=== PATIENT | male | born 1945 | race Hispanic/Latino ===

== ENCOUNTER 2020-11-16 14:48 | Inpatient (IN) | payer MEDICARE ==
--- NOTE | 2020-11-16 15:20 | Cat Scan Report ---
CT BRAIN: 11/16/2020 INDICATION / CLINICAL INFORMATION: Stroke symptoms. COMPARISON: None available. FINDINGS: BRAIN/INTRACRANIAL STRUCTURES: Unenhanced CT images of the brain demonstrate no evidence of acute abn ormality. Ventricles and sulci are prominent in size, consistent with prominent diffuse cerebral atrophy. There is evidence of chronic cortical ischemic injury in the high right parietal lobe as well as in t he right frontal periventricular white matter. There is no evidence of hemorrhage or mass. There are no abnormal extra-axial fluid collections. Atherosclerotic vascular calcifications are present in the distal internal carotid arteries and verte bral arteries. EXTRACRANIAL STRUCTURES: Unremarkable. IMPRESSION: No CT evidence of acute abnormality. Chronic right parietal cortical ischemic change. Prominent diffuse cerebral atrophy. Notification Dr. Xavier in the emergency department at [address] scans at this location are performed using dose reduction to ALARA by means of automated expos ure control. Signer Name: Chris Carl MD Signed: 11/16/2020 3:15 PM Workstation Name: [id number]
--- NOTE | 2020-11-16 15:55 | Emergency Department Report ---
ED Neuro Deficit HPI - General Chief Complaint: Neuro Symptoms/Deficit Stated Complaint: POSSIBLE STROKE Time Seen by Provider: 11/16/20 14:50 Source: EMS Mode of arrival: Stretcher Limitations: Altered Mental Status - History of Present Illness Initial Comments: Chief complaint: Left arm weakness HPI: This is a 75-year-old male with history of CVA x3, hypertension, diabetes mellitus, dyslipidemia who presents with left arm weakness sudden onset. provided history to EMS. Last known well 2 hours prior to arrival. Patient denies any pain or discomfort. Patient takes Pradaxa. EMS noticed right arm weakness. noticed left arm weakness when he was unable to transfer or move from a chair. He was holding his arm in a weird position. Medications: Indapamide Pradaxa Atorvastatin Spironolactone Hydralazine Lisinopril Atenolol Warfarin discontinued -: Sudden, hour(s) (2 hours prior to arrival) Location: left arm History of same: Yes Place: home Severity: mild Quality: weak Improves With: none Worsens With: none On Anticoagulants: Yes (Pradaxa) Context: sudden onset Associated Symptoms: denies other symptoms Treatments Prior to Arrival: other (EMS transport) ED Review of Systems ROS: Stated complaint: POSSIBLE STROKE Other details as noted in HPI Comment: All other systems reviewed and negative Constitutional: denies: chills, fever Respiratory: denies: cough, shortness of breath Cardiovascular: denies: chest pain Gastrointestinal: denies: abdominal pain, nausea, vomiting Neurological: weakness ED Past Medical Hx - Past Medical History Previous Medical History?: Yes Hx Hypertension: Yes Hx CVA: Yes Hx Diabetes: Yes - Surgical History Past Surgical History?: No - Social History Smoking Status: Never Smoker Substance Use Type: None ED Neuro Physical Exam - General Limitations: No Limitations General appearance: alert, in no apparent distress Suspected Stroke: Yes - Head Head exam: Present: atraumatic, normocephalic - Eye Eye exam: Present: normal appearance - ENT ENT exam: Present: mucous membranes moist - Neck Neck exam: Present: normal inspection, full ROM - Respiratory Respiratory exam: Present: normal lung sounds bilaterally. Absent: respiratory distress, wheezes, rales, rhonchi - Cardiovascular Cardiovascular Exam: Present: regular rate, normal rhythm, normal heart sounds. Absent: systolic murmur, diastolic murmur, rubs, gallop - GI/Abdominal GI/Abdominal exam: Present: soft, normal bowel sounds. Absent: distended, tenderness, guarding, rebound - Rectal Rectal exam: Present: deferred - Extremities Exam Extremities exam: Present: other (Pitting edema bilateral, venous stasis changes hyperpigmentation) - Neurological Exam Neurological exam: Present: alert, other (Oriented to place and name) - NIHSS Assessment Interval: Baseline 1a. Level of Consciousness: alert/keenly responsive 1b. LOC Questions: answers 1 question correctly 1c. LOC Commands: performs tasks correctly 2. Best Gaze: normal 3. Visual: no visual loss 4. Facial Palsy: normal symmetrical movement 5b. Motor Arm Right: no drift 5a. Motor Arm Left: drift 6a. Motor Leg Left: no drift 6b. Motor Leg Right: no drift 7. Limb Ataxia: present 1 limb 8. Sensory: normal 9. Best Language: no aphasia 10. Dysarthria: mild/moderate dysarthria 11. Extinction/Inattention: no abnormality Total Score: 4 Stroke Severity: Minor Stroke - Psychiatric Psychiatric exam: Present: normal affect, normal mood - Skin Skin exam: Present: warm, dry, intact, normal color. Absent: rash ED Course - Reevaluation(s) Reevaluation #1: 11/16/20 16:22 I spoke with our hospitalist Dr. Bernstein for admission. I then discovered patient's medication bag. He is covered by [facility]. I spoke immediately with [facility] physician to determine hospital admission location. - Lab Data Result diagrams: 11/16/20 15:17 11/16/20 15:17 Lab Results 11/16/20 11/16/20 11/16/20 Range/Units 15:17 15:17 15:17 WBC 5.2 (4.5-11.0) K/mm3 RBC 4.49 (3.65-5.03) M/mm3 Hgb 13.8 (11.8-15.2) gm/dl Hct 41.0 (35.5-45.6) % MCV 91 (84-94) fl MCH 31 (28-32) pg MCHC 34 (32-34) % RDW 13.8 (13.2-15.2) % Plt Count 148 (140-440) K/mm3 Lymph % (Auto) 19.7 (13.4-35.0) % [place] % (Auto) 7.2 (0.0-7.3) % Eos % (Auto) 3.4 (0.0-4.3) % Baso % (Auto) 0.9 (0.0-1.8) % Lymph # (Auto) 1.0 L (1.2-5.4) K/mm3 [place] # (Auto) 0.4 (0.0-0.8) K/mm3 Eos # (Auto) 0.2 (0.0-0.4) K/mm3 Baso # (Auto) 0.0 (0.0-0.1) K/mm3 Seg Neutrophils % 68.8 (40.0-70.0) % Seg Neutrophils # 3.6 (1.8-7.7) K/mm3 PT 13.8 (12.2-14.9) Sec. INR 1.00 (0.87-1.13) APTT 29.1 (24.2-36.6) Sec. Thrombin Time 79.1 H (15.1-19.6) Sec. Sodium 135 L (137-145) mmol/L Potassium 4.3 (3.6-5.0) mmol/L Chloride 101.0 (98-107) mmol/L Carbon Dioxide 25 (22-30) mmol/L Anion Gap 13 mmol/L BUN 18 (9-20) mg/dL Creatinine 1.2 (0.8-1.3) mg/dL Estimated GFR 59 ml/min BUN/Creatinine Ratio 15 % Glucose 139 H (75-100) mg/dL Calcium 8.7 (8.4-10.2) mg/dL Troponin T < 0.010 (0.00-0.029) ng/mL - Radiology Data [facility] [address] [place] [address] Cat Scan Report Signed Patient: STEPHANIE PEREZ MR#: [id number] : 1945 Acct:[id number] Age/Sex: 75 / M ADM Date: 11/16/20 Loc: ED Attending Dr: Ordering Physician: Nelly Christy MD Date of Service: 11/16/20 Procedure(s): CT head/brain wo con Accession Number(s): [id number] cc: Nelly Christy MD CT BRAIN: 11/16/2020 INDICATION / CLINICAL INFORMATION: Stroke symptoms. COMPARISON: None available. FINDINGS: BRAIN/INTRACRANIAL STRUCTURES: Unenhanced CT images of the brain demonstrate no evidence of acute abnormality. Ventricles and sulci are prominent in size, consistent with prominent diffuse cerebral atrophy. There is evidence of chronic cortical ischemic injury in the high right pa rietal lobe as well as in the right frontal periventricular white matter. There is no evidence of hemorrhage or mass. There are no abnormal extra-axial fluid collections. Atherosclerotic vascular calcifications are present in the distal internal carotid arteries and vertebral arteries. EXTRACRANIAL STRUCTURES: Unremarkable. IMPRESSION: No CT evidence of acute abnormality. Chronic right parietal cortical ischemic change. Prominent diffuse cerebral atrophy. Notification Dr. Xavier in the emergency department at [address] scans at this location are performed using dose reduction to ALARA by means of automated exposure control. Signer Name: Chris Carl MD Signed: 11/16/2020 3:15 PM Workstation Name: [id number] Transcribed By: AO Dictated By: Chris Carl MD Electronically Authenticated By: Chris Carl MD Signed Date/Time: 11/16/201514 DD/ 10 TD/TT: [facility] [address] [place] [address] Cat Scan Report Signed Patient: STEPHANIE PEREZ MR#: [id number] : 1945 Acct:[id number] Age/Sex: 75 / M ADM Date: 11/16/20 Loc: ED Attending Dr: Ordering Physician: Nelly Christy MD Date of Service: 11/16/20 Procedure(s): CT angio neck Accession Number(s): [id number] cc: Nelly Christy MD CT angio neck INDICATION / CLINICAL INFORMATION: 75 years Male; stroke symptoms left sided weakness. TECHNIQUE: Thin cut axial images obtained through the head during IV bolus contrast administration. Sagittal, coronal, and 3 plane MIP reconstructions performed by the technologist. NASCET type criteria used evaluate stenoses. All CT scans at this location are performed using CT dose reduction for ALARA by means of automated exposure control. COMPARISON: None available. FINDINGS: CAROTID ARTERIES: The motion significantly degrades the image quality. However, there is minimal calcification involving proximal right ICA without significant stenosis by NASCET criteria. The right carotid bifurcation is widely patent. There is also no significant stenosis involving the left carotid bifurcation. However, there is atherosclerotic calcified plaque involving the distal cervical segment of the left ICA with 50% stenosis by NASCET criteria VERTEBRAL ARTERIES: There appears be small focus of calcification with mild narrowing of the origin of the left vertebral artery. Otherwise, the vertebral arteries are unremarkable without significant focal stenosis. ARCH: Unfortunately, the arch of vessels are not fully included on this exam. There is no significant stenosis of the visualized proximal segments at. ADDITIONAL FINDINGS: Remainder of the surrounding soft tissues are grossly normal. IMPRESSION: There is calcified plaque involving the distal cervical left ICA with 50% stenosis by NASCET criteria. There is no significant stenosis involving carotid bifurcations bilaterally. There is mild narrowing of the origin of the left vertebral artery. Signer Name: Jn Aguilera MD Signed: 11/16/2020 4:05 PM Workstation Name: [id number] Transcribed By: MR Dictated By: Jn Aguilera MD Electronically Authenticated By: Jn Aguilera MD Signed Date/Time: 11/16/20 1605 DD/ 1559 TD/TT: [facility] [address] [place] [address] Cat Scan Report Signed Patient: STEPHANIE PEREZ MR#: [id number] : 1945 Acct:[id number] Age/Sex: 75 / M ADM Date: 11/16/20 Loc: ED Attending Dr: Ordering Physician: Nelly Christy MD Date of Service: 11/16/20 Procedure(s): CT angio head Accession Number(s): [id number] cc: Nelly Christy MD CT angio head INDICATION / CLINICAL INFORMATION: 75 years Male; OMNI 350 100 ML stroke symptoms left sided weakness. TECHNIQUE: Thin cut axial images obtained through the head during IV bolus contrast administration. Sagittal, coronal, and 3 plane MIP reconstructions performed by the technologist. NASCET type criteria used evaluate stenoses. Automated exposure control utilized for radiation reduction purposes. COMPARISON: None available. FINDINGS: INTERNAL CAROTID ARTERIES: There is extensive atherosclerotic calcification involving the intracranial ICAs bilaterally with mild to moderate stenosis, particularly involving the cavernous, ophthalmic and clinoid segments. VERTEBROBASILAR SYSTEM: There is also calcification involving proximal intracranial left vertebral artery with mild narrowing at. There is irregularity of the basilar artery indicative of atherosclerotic disease with mild to narrowing, particularly involving the mid segmented. CEREBRAL ARTERIES: There is notable irregularity of the posterior cerebral arteries with foci of moderate to marked narrowing, particularly involving P1 segments. The findings may also reflect atherosclerotic disease. There appears be marked stenosis of the proximal A1 segment. There is some opacification of the more distal A1 segment which may be via collateral of flow. There is no significant narrowing involving more distal anterior cerebral segments at. There is no significant stenosis involving the proximal middle cerebral arteries or visualized adjacent segments. ANEURYSM: None identified. ADDITIONAL FINDINGS: The ventral venous sinuses opacify with contrast. IMPRESSION: There is atherosclerotic calcification involving the intracranial ICAs with mild to moderate segmental stenosis as detailed above. There is mild narrowing of the proximal left intracranial vertebral artery. There is notable irregularity of the posterior cerebral arteries, particularly involving P1 segments with moderate to marked narrowing. There is also marked stenosis involving proximal A1 segment of the right STEPHEN as described at. The above findings would be indicative of diffuse atherosclerotic disease. There is mild narrowing of the mid basilar artery at. Signer Name: Jn Aguilera MD Signed: 11/16/2020 4:12 PM Workstation Name: [id number] Transcribed By: MR Dictated By: Jn Aguilera MD Electronically Authenticated By: Jn Aguilera MD Signed Date/Time: 11/16/20 1612 DD/ 1605 TD/TT: Chest 1 view: Diminished lung volumes with a localized infiltrate, prominence of the right hilum - Medical Decision Making Acute CVA: TPA contraindicated with history of anticoagulation agent Pradaxa. NIHSS 3 per teleneurologist who did not recommend TPA. Teleneurologist recom mended pursing metabolic infectious cause of presentation. Critical Care Time: Yes Critical care time in (mins) excluding proc time.: 40 Critical care attestation.: If time is entered above; I have spent that time in minutes in the direct care of this critically ill patient, excluding procedure time. 40 minutes of critical care time excluding procedures were used in the care of the patient. I came immediately to the bedside upon patient's arrival. I obtained history from EMS at the bedside. I asked charge nurse to activate code stroke protocol. Nurse team accompany patient with video camera to CT. I discussed treatment plan with the nursing team members. I reviewed electronic record. I kept informed. Patient required multiple interventions and reassessments. I spoke with multiple consultants including radiologist, teleneurologist, hospitalist and transfer physician with [facility]. ED Disposition Clinical Impression: Acute CVA (cerebrovascular accident) Disposition: OP ADMIT IP TO THIS HOSP Is pt being admited?: Yes Does the pt Need Aspirin: No Condition: Stable
--- NOTE | 2020-11-16 15:55 | XRay Report ---
CHEST 1 VIEW 11/16/2020 2:39 PM INDICATION / CLINICAL INFORMATION: suspected stroke. COMPARISON: None available. FINDINGS: SUPPORT DEVICES: None. HEART / MEDIASTINUM: No significant abnormality. LUNGS / PLEURA: Lung volumes are diminished. Mild prominence right hilum. No pneumothorax. ADDITIONAL FINDINGS: No significant additional findings. IMPRESSION: 1. Diminished lung volumes without localized infiltrate. 2. Prominence of the right hilum. This is favored to be vascular in origin. Recommend follow-up PA an d lateral chest. Signer Name: Dinesh Em MD Signed: 11/16/2020 3:51 PM Workstation Name: [id number]
[2020-11-16 16:00] LABS: BUN/Creatinine Ratio 15; Basophils % (Auto) 0.9 % (0.0-1.8); Blood Urea Nitrogen 18 mg/dL (9-20); Calcium 8.7 mg/dL (8.4-10.2); Eosinophils # (Auto) 0.2 K/mm3 (0.0-0.4); Eosinophils % (Auto) 3.4 % (0.0-4.3); Hemoglobin 13.8 gm/dl (11.8-15.2); Hemolysis Index 12; Lymphocytes % (Auto) 19.7 % (13.4-35.0); Mean Corpuscular HGB Conc 34 % (32-34); Mean Corpuscular Volume 91 fl (84-94); Monocytes # (Auto) 0.4 K/mm3 (0.0-0.8); Monocytes % (Auto) 7.2 % (0.0-7.3); Platelet Count 148 K/mm3 (140-440); Red Blood Count 4.49 M/mm3 (3.65-5.03); Red Cell Distribution Width 13.8 % (13.2-15.2)
--- NOTE | 2020-11-16 16:09 | Cat Scan Report ---
CT angio neck INDICATION / CLINICAL INFORMATION: 75 years Male; stroke symptoms left sided weakness. TECHNIQUE: Thin cut axial images obtained through the head during IV bolus contrast administration. S agittal, coronal, and 3 plane MIP reconstructions performed by the technologist. NASCET type criteria used evaluate stenoses. All CT scans at this location are performed using CT dose reduction for ALAR A by means of automated exposure control. COMPARISON: None available. FINDINGS: CAROTID ARTERIES: The motion significantly degrades the image quality. However, there is minimal calc ification involving proximal right ICA without significant stenosis by NASCET criteria. The right car otid bifurcation is widely patent. There is also no significant stenosis involving the left carotid bifurcation. However, there is ather osclerotic calcified plaque involving the distal cervical segment of the left ICA with 50% stenosis b y NASCET criteria VERTEBRAL ARTERIES: There appears be small focus of calcification with mild narrowing of the origin o f the left vertebral artery. Otherwise, the vertebral arteries are unremarkable without significant f ocal stenosis. ARCH: Unfortunately, the arch of vessels are not fully included on this exam. There is no significant stenosis of the visualized proximal segments at. ADDITIONAL FINDINGS: Remainder of the surrounding soft tissues are grossly normal. IMPRESSION: There is calcified plaque involving the distal cervical left ICA with 50% stenosis by NASCET criteria . There is no significant stenosis involving carotid bifurcations bilaterally. There is mild narrowing of the origin of the left vertebral artery. Signer Name: Jn Aguilera MD Signed: 11/16/2020 4:05 PM Workstation Name: [id number]
--- NOTE | 2020-11-16 16:16 | Cat Scan Report ---
CT angio head INDICATION / CLINICAL INFORMATION: 75 years Male; OMNI 350 100 ML stroke symptoms left sided weakness. TECHNIQUE: Thin cut axial images obtained through the head during IV bolus contrast administration. S agittal, coronal, and 3 plane MIP reconstructions performed by the technologist. NASCET type criteria used evaluate stenoses. Automated exposure control utilized for radiation reduction purposes. COMPARISON: None available. FINDINGS: INTERNAL CAROTID ARTERIES: There is extensive atherosclerotic calcification involving the intracrania l ICAs bilaterally with mild to moderate stenosis, particularly involving the cavernous, ophthalmic a nd clinoid segments. VERTEBROBASILAR SYSTEM: There is also calcification involving proximal intracranial left vertebral ar alicia with mild narrowing at. There is irregularity of the basilar artery indicative of atheroscleroti c disease with mild to narrowing, particularly involving the mid segmented. CEREBRAL ARTERIES: There is notable irregularity of the posterior cerebral arteries with foci of mode rate to marked narrowing, particularly involving P1 segments. The findings may also reflect atheroscl erotic disease. There appears be marked stenosis of the proximal A1 segment. There is some opacification of the more distal A1 segment which may be via collateral of flow. There is no significant narrowing involving mo re distal anterior cerebral segments at. There is no significant stenosis involving the proximal middle cerebral arteries or visualized adjace nt segments. ANEURYSM: None identified. ADDITIONAL FINDINGS: The ventral venous sinuses opacify with contrast. IMPRESSION: There is atherosclerotic calcification involving the intracranial ICAs with mild to moderate segmenta l stenosis as detailed above. There is mild narrowing of the proximal left intracranial vertebral art filiberto. There is notable irregularity of the posterior cerebral arteries, particularly involving P1 segments with moderate to marked narrowing. There is also marked stenosis involving proximal A1 segment of the right STEPHEN as described at. The above findings would be indicative of diffuse atherosclerotic disease. There is mild narrowing of the mid basilar artery at. Signer Name: Jn Aguilera MD Signed: 11/16/2020 4:12 PM Workstation Name: [id number]
[2020-11-16 16:17] LABS: Partial Thromboplastin Time 29.1 Sec. (24.2-36.6)
[2020-11-16 16:18] LABS: Thrombin Time 79.1 Sec. (15.1-19.6)
[2020-11-16] MEDS ORDERED: ASPIRIN 81 MG TAB CHEW PO ONE (16:19)
--- NOTE | 2020-11-16 16:21 | History and Physical Report ---
History of Present Illness Chief complaint: He is weak on that left side History of present illness: 75 YO Male with HTN, DM, HLD, CVA x3 complicated by Dysarthria, and Debility currently on therapeutic anticoagulation with Pradaxa, Vascular Dementia with Behavioral Disturbance, Cerebral Atherosclerosis presents to ED for evaluation. Patient has diminished cognition and is unable to provide history at the time my evaluation. Patient is at bedside during exam and interview and provides history. Patient reports that patient has experienced progressive muscular weakness over the past 3 months with persistently worsening symptoms over the same timeframe. Patient is currently bedbound and nonambulatory. Patient currently requires 5/6 assistance with activities of daily living. Patient has a palliative performance score of 30%. Patient exhibits tangential thinking as well as confusion and agitation during evening hours. Patient reports that patient was found to have new onset left arm weakness today. EMS was notified and upon arrival the patient was found to be in distress with a neurologic deficit. A code stroke was called and the patient was transported to [facility] for further care and evaluation of the aforementioned symptoms. The patient was seen and evaluated in the emergency department. All lab and imaging studies reviewed. Patient found to have some clinical symptoms consistent with CVA. Patient placed in observation status and admitted to telemetry and initiated on CVA protocol. No reports of fever, chills, chest pain, palpitation, productive cough, skin rash, recent ill contacts, trauma, or known exposure to COVID-19. No prior admission for review. All medication listed at time of admission has been reconciled. Advanced care planning conducted in ED. Past History Past Medical History: diabetes, hypertension, hyperlipidemia, stroke, other (See HPI) Past Surgical History: No surgical history, Other (Reviewed) Social history: , lives with family. denies: smoking, alcohol abuse, prescription drug abuse Family history: CAD, hypertension Medications and Allergies Active Meds: Active Medications Aspirin (Aspirin 81 Mg Tab Chew) 324 mg PO ONCE ONE Stop: 11/16/20 16:20 Review of Systems ROS unobtainable: due to mental status Exam - Constitutional General appearance: Present: mild distress - EENT Eyes: Present: PERRL ENT: clear oral mucosa, hearing decreased - Neck Neck: Present: supple, normal ROM - Respiratory Respiratory effort: normal Respiratory: bilateral: CTA - Cardiovascular Heart Sounds: Present: S1 & S2. Absent: rub, click - Extremities Extremities: pulses symmetrical, No edema Peripheral Pulses: within normal limits - Abdominal General gastrointestinal: Present: soft, non-tender, non-distended, normal bowel sounds Male genitourinary: Present: normal - Integumentary Integumentary: Present: warm, dry, decreased turgor - Musculoskeletal Musculoskeletal: left sided weakness - Psychiatric Psychiatric: no appropriate mood/affect, no intact judgment & insight, no memory intact, agitated - Neurologic Neurologic: CNII-XII intact, focal deficits, moves all extremities, no gait normal HEART Score - HEART Score Troponin: Troponin T < 0.010 ng/mL (0.00-0.029) 11/16/20 15:17 Results - Labs CBC & Chem 7: 11/16/20 15:17 11/16/20 15:17 Labs: Abnormal lab results 11/16/20 11/16/20 11/16/20 Range/Units 15:17 15:17 15:17 Lymph # (Auto) 1.0 L (1.2-5.4) K/mm3 Thrombin Time 79.1 H (15.1-19.6) Sec. Sodium 135 L (137-145) mmol/L Glucose 139 H (75-100) mg/dL Assessment and Plan - Patient Problems (1) Acute CVA (cerebrovascular accident) Status: Acute Plan to address problem: CVA protocol: CT scan head, carotid Doppler, echocardiogram, continue antipla telet therapy, telemetry neurology team consulted in ED, physical therapy consulted, Occupational Therapy consulted, speech therapy consulted, (2) Vascular dementia with behavioral disturbance Status: Acute Plan to address problem: Verbal prompting, verbal redirection, benzodiazepine therapy as clinically indicated, supportive care. (3) Cerebral atherosclerosis Status: Acute Plan to address problem: Risk factor reduction, antiplatelet therapy, supportive care. (4) Debility Status: Acute Plan to address problem: Physical therapy consulted, Occupational Therapy consulted (5) Diabetes Status: Acute Plan to address problem: Consistent carbohydrate diet, hypoglycemia protocol, insulin protocol, (6) Hypertension Status: Acute Qualifiers: Hypertension type: primary hypertension Qualified Code(s): I10 - Essential (primary) hypertension Plan to address problem: Monitor blood pressure every shift, continue medical management, permissive hypertension overnight. (7) DVT prophylaxis Status: Acute Plan to address problem: SCD to bilateral lower extremities while in bed, continue therapeutic anticoagulation with Pradaxa (8) Advance care planning Status: Acute Plan to address problem: Disease education conducted, care plan discussed, diagnosis discussed, prognosis discussed. Patient at bedside during exam and interview and voices concerns regarding patient prognosis. Patient request home hospice evaluation. Home hospice team notified. Home evaluation arranged. Patient knowledges understanding and agreement with care plan, +30 minutes.
[2020-11-16] MEDS ORDERED: ALBUTEROL 2.5 MG/3 ML NEBU IH PRN (16:26)
[2020-11-16] MEDS ORDERED: HYDROmorphone 1 MG/1 ML INJ IV PRN (16:26)
[2020-11-16] MEDS ORDERED: METOCLOPRAMIDE 10 MG TAB PO PRN (16:26)
[2020-11-16] MEDS ORDERED: PROMETHAZINE 25 MG RECT SUPP PR PRN (16:26)
[2020-11-16] MEDS ORDERED: MAGNESIUM HYDROXIDE (MOM) ORAL LIQD UDC PO PRN (16:26)
[2020-11-16] MEDS ORDERED: ACETAMINOPHEN 325 MG TAB PO PRN (16:26)
[2020-11-16] MEDS ORDERED: oxyCODONE /ACETAMINOPHEN 5-325MG TAB PO PRN (16:26)
[2020-11-16] MEDS ORDERED: ONDANSETRON 4 MG/2 ML INJ IV PRN (16:26)
--- NOTE | 2020-11-16 17:28 | Consultation ---
Past History Past Medical History: diabetes, hypertension, hyperlipidemia, stroke, other (See HPI) Past Surgical History: No surgical history, Other (Reviewed) Social history: , lives with family. denies: smoking, alcohol abuse, prescription drug abuse Family history: CAD, hypertension Medications and Allergies Active Meds: Active Medications Acetaminophen (Acetaminophen 325 Mg Tab) 650 mg PO Q4H PRN PRN Reason: Pain, Mild (1-3) Albuterol (Albuterol 2.5 Mg/3 Ml Nebu) 2.5 mg IH Q3HRT PRN PRN Reason: Shortness Of Breath Aspirin (Aspirin 81 Mg Tab Chew) 324 mg PO ONCE ONE Stop: 11/16/20 16:20 Atorvastatin Calcium (Atorvastatin 40 Mg Tab) 40 mg PO QHS DOMI Bisacodyl (Bisacodyl 10 Mg Rect Supp) 10 mg DC QDAY PRN PRN Reason: Constipation Hydromorphone HCl (Hydromorphone 1 Mg/1 Ml Inj) 0.5 mg IV Q12H PRN PRN Reason: Pain , Severe (7-10) Magnesium Hydroxide (Magnesium Hydroxide (Mom) Oral Liqd Udc) 30 ml PO Q4H PRN PRN Reason: Constipation Metoclopramide HCl (Metoclopramide 10 Mg Tab) 10 mg PO Q6H PRN PRN Reason: Nausea And Vomiting Ondansetron HCl (Ondansetron 4 Mg/2 Ml Inj) 4 mg IV Q8H PRN PRN Reason: Nausea And Vomiting Oxycodone/Acetaminophen (Oxycodone /Acetaminophen 5-325mg Tab) 1 tab PO Q12H PRN PRN Reason: Pain, Moderate (4-6) Promethazine HCl (Promethazine 25 Mg Rect Supp) 25 mg DC Q6H PRN PRN Reason: Nausea And Vomiting Sodium Chloride (Sodium Chloride 0.9% 10 Ml Flush Syringe) 10 ml INJ PRN PRN PRN Reason: LINE FLUSH Results - Laboratory Findings CBC and BMP: 11/16/20 15:17 11/16/20 15:17 Abnormal Lab Findings: Abnormal Labs 11/16/20 11/16/20 11/16/20 15:17 15:17 15:17 Lymph # (Auto) 1.0 L Thrombin Time 79.1 H Sodium 135 L Glucose 139 H Assessment and Plan [facility] Consult Note # Demographics Consult Type: Acute Stroke Level 1 (0-4.5 hrs) Patient Location: Emergency Room First Name: Harvey Last Name: Ann Marie Date of : 1945 Age: 75 Gender: Male Time of Initial Page ( Time): 11/16/2020, 14:52 Time of Return Call ( Time): 11/16/2020, 14:55 # HPI History: 73 yo man with history of previous strokes and residual difficulty ambulating presents with sudden onset of left sided weakness and confusion at 1200 today. Last Known Normal: I have collected independent history specific to time last normal or last known well. We have collaborated with the provider and at this time, we have the most current timeline with the information that is available. 12:00 noon # Scores Time of exam and NIHSS ( Time): 11/16/2020, 15:16 Level of Consciousness 1a: [0] = Alert; keenly responsive LOC Questions 1b: [1] = Answers one correctly LOC Commands 1c: [0] = Performs both tasks correctly Best Gaze 2: [0] = Normal Visual 3: [0] = No visual loss Facial Palsy 4: [0] = Normal symmetrical movements Motor Arm Left 5a: [0] = No drift Motor Arm Right 5b: [0] = No drift Motor Leg Left 6a: [0] = No drift Motor Leg Right 6b: [0] = No drift Limb Ataxia 7: [1] = Present in one limb Sensory 8: [0] = Normal Best Language 9: [0] = No aphasia Dysarthria 10: [1] = [id number] dysarthria Extinction and Inattention 11: [0] = No abnormality NIHSS Total: 3 # Exam Vitals: vital signs reviewed SBP: 152 DBP: 110 # PMH-FH-SH Medications: Pradaxa # Data Head CT: no bleed per radiologist read CTA Head: no large vessel occlusion # Assessment Impression: Agitation and confusion, broad differential # Plan Thrombolytic/Intervention: NOT IV Thrombolytic or IA Intervention Thrombolytic Exclusion (< 3 hour window): actively on NOAC Intraarterial Exclusion: other Symptoms not suggestive of LVO Imaging: (urgency: routine): MRI Brain without contrast Medication: anticoagulation with NOAC Other: I have discussed my recommendations with the referring provider Additional Recommendations: Metabolic and infectious workup MRI brain to further rule out stroke Disposition: admit
[2020-11-17 03:44] LABS: Bilirubin,Urine NEG (Negative); Blood,Urine NEG (Negative); Color,Urine Yellow (Yellow); Protein,Urine <15 mg/dL mg/dL (Negative)
[2020-11-17 03:52] LABS: Amphetamine Screen,Urine PRESUMPTIVE NEGATIVE; Benzodiazepines Screen,Urine PRESUMPTIVE NEGATIVE; Cannabinoid Screen,Urine PRESUMPTIVE NEGATIVE; Cocaine Screen,Urine PRESUMPTIVE NEGATIVE; Methadone Screen,Urine PRESUMPTIVE NEGATIVE; Opiate Screen,Urine PRESUMPTIVE NEGATIVE
[2020-11-17 06:41] LABS: Chol/HDL Ratio 3.17 %
--- NOTE | 2020-11-17 10:37 | Vascular Lab Report ---
DUPLEX DOPPLER ULTRASOUND CAROTID, BILATERAL INDICATION / CLINICAL INFORMATION: stroke. COMPARISON: None available. FINDINGS: RIGHT CAROTID: - PLAQUE ESTIMATE (%): < 50% - CCA velocity: 84 cm/sec. - ICA peak systolic velocity: 57 cm/sec. - ICA/CCA PSV Ratio: Less than 2 Right Vertebral Artery: Antegrade flow. LEFT CAROTID: - PLAQUE ESTIMATE (%): < 50% - CCA velocity: 97 cm/sec. - ICA peak systolic velocity: 87 cm/sec. - ICA/CCA PSV Ratio: Less than 2 Left Vertebral Artery: Antegrade flow. IMPRESSION: 1. Right Internal Carotid Artery: Less than 50% diameter stenosis. 2. Left Internal Carotid Artery: Less than 50% diameter stenosis. Velocity criteria are extrapolated from diameter data as defined by the Society of Radiologists in Ul trasound Consensus Conference, Radiology 2003; 229;340-346. NO STENOSIS (NORMAL) - Plaque = none; ICA PSV < 125 cm/sec; ICA/CCA PSV Ratio < 2.0 <50% STENOSIS - Plaque < 50%; ICA PSV < 125 cm/sec; ICA/CCA PSV Ratio < 2.0 50-69% STENOSIS - Plaque > 50%; ICA PSV = 125-230 cm/sec; ICA/CCA PSV Ratio = 2.0-4.0 >70% BUT <100% STENOSIS - Plaque > 50%; ICA PSV > 230 cm/sec; ICA/CCA PSV Ratio > 4.0 NEAR OCCLUSION - Plaque = visible lumen; ICA PSV = high/low/none; ICA/CCA PSV Ratio = variable TOTAL OCCLUSION - Plaque = no lumen; ICA PSV = none; ICA/CCA PSV Ratio = N/A Signer Name: Michael Willams MD Signed: 11/17/2020 10:33 AM Workstation Name: [id number]
--- NOTE | 2020-11-18 17:12 | Progress Note ---
Assessment and Plan Assessment and Plan - Patient Problems (1) Acute CVA (cerebrovascular accident) Status: Acute Plan to address problem: CVA protocol: CT scan head, carotid Doppler, echocardiogram, continue antiplatelet therapy, telemetry neurology team consulted in ED, physical therapy consulted, Occupational Therapy consulted, speech therapy consulted, MRI pending L Hemiplegia (2) Vascular dementia with behavioral disturbance Status: Acute Plan to address problem: Verbal prompting, verbal redirection, benzodiazepine therapy as clinically indicated, supportive care. (3) Cerebral atherosclerosis Status: Acute Plan to address problem: Risk factor reduction, antiplatelet therapy, supportive care. (4) Debility Status: Acute Plan to address problem: Physical therapy consulted, Occupational Therapy consulted (5) Diabetes Status: Acute Plan to address problem: Consistent carbohydrate diet, hypoglycemia protocol, insulin protocol, (6) Hypertension Status: Acute Qualifiers: Hypertension type: primary hypertension Qualified Code(s): I10 - Essential (primary) hypertension Plan to address problem: Monitor blood pressure every shift, continue medical management, permissive hypertension overnight. (7) DVT prophylaxis Status: Acute Plan to address problem: SCD to bilateral lower extremities while in bed, continue therapeutic anticoagulation with Pradaxa (8) Advance care planning Status: Acute Plan to address problem: Disease education conducted, care plan discussed, diagnosis discussed, prognosis discussed. Patient at bedside during exam and interview and voices concerns regarding patient prognosis. Patient request home hospice evaluation. Home hospice team notified. Home evaluation arranged. Patient knowledges understanding and agreement with care plan, +30 minutes. Subjective Date of service: 11/17/20 Principal diagnosis: Acute CVA Interval history: 75 YO Male with HTN, DM, HLD, CVA x3 complicated by Dysarthria, and Debility currently on therapeutic anticoagulation with Pradaxa, Vascular Dementia with Behavioral Disturbance, Cerebral Atherosclerosis presents to ED for evaluation. Patient has diminished cognition and is unable to provide history at the time my evaluation. Patient is at bedside during exam and interview and provides history. Patient reports that patient has experienced progressive muscular weakness over the past 3 months with persistently worsening symptoms over the same timeframe. Patient is currently bedbound and nonambulatory. Patient currently requires 5/6 assistance with activities of daily living. Patient has a palliative performance score of 30%. Patient exhibits tangential thinking as well as confusion and agitation during evening hours. Patient reports that patient was found to have new onset left arm weakness today. EMS was notified and upon arrival the patient was found to be in distress with a neurologic deficit. A code stroke was called and the patient was transported to [facility] for further care and evaluation of the aforementioned symptoms. The patient was seen and evaluated in the emergency department. All lab and imaging studies reviewed. Patient found to have some clinical symptoms consistent with CVA. Patient placed in observation status and admitted to telemetry and initiated on CVA protocol. No reports of fever, chills, chest pain, palpitation, productive cough, skin rash, recent ill contacts, trauma, or known exposure to COVID-19. No prior admission for review. All medication listed at time of admission has been reconciled. Advanced care planning conducted in ED. 11/17/20 L sided hemiplegia D/w Objective - Constitutional Vitals: Vital Signs - 12hr 11/18/20 11/18/20 11/18/20 06:00 07:36 12:27 Temperature 98.1 F 98.0 F Pulse Rate 60 63 74 Respiratory 20 20 Rate Blood Pressure 171/82 169/95 O2 Sat by Pulse 94 96 Oximetry General appearance: Present: no acute distress, well-nourished - EENT Eyes: PERRL, EOM intact ENT: hearing intact, clear oral mucosa Ears: bilateral: normal - Neck Neck: supple, normal ROM - Respiratory Respiratory effort: normal Respiratory: bilateral: CTA - Breasts Breasts: normal - Cardiovascular Heart rate: 78 Rhythm: regular Heart Sounds: Present: S1 & S2. Absent: gallop, rub Extremities: pulses intact, No edema, normal color, Full ROM - Gastrointestinal General gastrointestinal: Present: soft, non-tender, non-distended, normal bowel sounds - Genitourinary Male genitourinary: normal - Integumentary Integumentary: clear, warm, dry - Musculoskeletal Musculoskeletal: left sided weakness - Neurologic Neurologic: moves all extremities - Psychiatric Psychiatric: memory intact, appropriate mood/affect, intact judgment & insight - Allied health notes Allied health notes reviewed: nursing - Labs CBC & Chem 7: 11/16/20 15:17 11/16/20 15:17 HEART Score - HEART Score Troponin: Troponin T < 0.010 ng/mL (0.00-0.029) 11/16/20 15:17
--- NOTE | 2020-11-18 17:31 | Progress Note ---
Assessment and Plan Assessment and Plan - Patient Problems (1) Acute CVA (cerebrovascular accident) Status: Acute Plan to address problem: CVA protocol: CT scan head, carotid Doppler, echocardiogram, continue antiplatelet therapy, telemetry neurology team consulted in ED, physical therapy consulted, Occupational Therapy consulted, speech therapy consulted, MRI pending L Hemiplegia (2) Vascular dementia with behavioral disturbance Status: Acute Plan to address problem: Verbal prompting, verbal redirection, benzodiazepine therapy as clinically indicated, supportive care. (3) Cerebral atherosclerosis Status: Acute Plan to address problem: Risk factor reduction, antiplatelet therapy, supportive care. (4) Debility Status: Acute Plan to address problem: Physical therapy consulted, Occupational Therapy consulted (5) Diabetes Status: Acute Plan to address problem: Consistent carbohydrate diet, hypoglycemia protocol, insulin protocol, (6) Hypertension Status: Acute Qualifiers: Hypertension type: primary hypertension Qualified Code(s): I10 - Essential (primary) hypertension Plan to address problem: Monitor blood pressure every shift, continue medical management, permissive hypertension overnight. (7) DVT prophylaxis Status: Acute Plan to address problem: SCD to bilateral lower extremities while in bed, continue therapeutic anticoagulation with Pradaxa (8) Advance care planning Status: Acute Plan to address problem: Disease education conducted, care plan discussed, diagnosis discussed, prognosis discussed. Patient at bedside during exam and interview and voices concerns regarding patient prognosis. Patient request home hospice evaluation. Home hospice team notified. Home evaluation arranged. Patient knowledges understanding and agreement with care plan, +30 minutes. Subjective Date of service: 11/18/20 Principal diagnosis: Acute CVA Interval history: 75 YO Male with HTN, DM, HLD, CVA x3 complicated by Dysarthria, and Debility currently on therapeutic anticoagulation with Pradaxa, Vascular Dementia with Behavioral Disturbance, Cerebral Atherosclerosis presents to ED for evaluation. Patient has diminished cognition and is unable to provide history at the time my evaluation. Patient is at bedside during exam and interview and provides history. Patient reports that patient has experienced progressive muscular weakness over the past 3 months with persistently worsening symptoms over the same timeframe. Patient is currently bedbound and nonambulatory. Patient currently requires 5/6 assistance with activities of daily living. Patient has a palliative performance score of 30%. Patient exhibits tangential thinking as well as confusion and agitation during evening hours. Patient reports that patient was found to have new onset left arm weakness today. EMS was notified and upon arrival the patient was found to be in distress with a neurologic deficit. A code stroke was called and the patient was transported to [facility] for further care and evaluation of the aforementioned symptoms. The patient was seen and evaluated in the emergency department. All lab and imaging studies reviewed. Patient found to have some clinical symptoms consistent with CVA. Patient placed in observation status and admitted to telemetry and initiated on CVA protocol. No reports of fever, chills, chest pain, palpitation, productive cough, skin rash, recent ill contacts, trauma, or known exposure to COVID-19. No prior admission for review. All medication listed at time of admission has been reconciled. Advanced care planning conducted in ED. 11/17/20 L sided hemiplegia D/w 11/18/20 L side hemiplegia D/w daughter Objective - Constitutional Vitals: Vital Signs - 12hr 11/18/20 11/18/20 11/18/20 06:00 07:36 12:27 Temperature 98.1 F 98.0 F Pulse Rate 60 63 74 Respiratory 20 20 Rate Blood Pressure 171/82 169/95 O2 Sat by Pulse 94 96 Oximetry General appearance: Present: no acute distress, well-nourished - EENT Eyes: PERRL, EOM intact ENT: hearing intact, clear oral mucosa Ears: bilateral: normal - Neck Neck: supple, normal ROM - Respiratory Respiratory effort: normal Respiratory: bilateral: CTA - Breasts Breasts: normal - Cardiovascular Heart rate: 78 Rhythm: regular Heart Sounds: Present: S1 & S2. Absent: gallop, rub Extremities: pulses intact, No edema, normal color, Full ROM - Gastrointestinal General gastrointestinal: Present: soft, non-tender, non-distended, normal bowel sounds - Genitourinary Male genitourinary: normal - Integumentary Integumentary: clear, warm, dry - Musculoskeletal Musculoskeletal: left sided weakness (0/5 power) - Neurologic Neurologic: focal deficits (L Hemiplegia), moves all extremities - Psychiatric Psychiatric: appropriate mood/affect, intact judgment & insight, memory intact, depressed - Allied health notes Allied health notes reviewed: nursing, PT, social work, case management - Labs CBC & Chem 7: 11/16/20 15:17 11/16/20 15:17 HEART Score - HEART Score Troponin: Troponin T < 0.010 ng/mL (0.00-0.029) 11/16/20 15:17
--- NOTE | 2020-11-19 13:50 | Progress Note ---
Assessment and Plan Assessment and Plan - Patient Problems (1) Acute CVA (cerebrovascular accident) Status: Acute Plan to address problem: CVA protocol: CT scan head, carotid Doppler, echocardiogram, continue antiplatelet therapy, telemetry neurology team consulted in ED, physical therapy consulted, Occupational Therapy consulted, speech therapy consulted, MRI pending L Hemiplegia Needs acute rehab/subacute rehab (2) Vascular dementia with behavioral disturbance Status: Acute Plan to address problem: Verbal prompting, verbal redirection, benzodiazepine therapy as clinically ind icated, supportive care. Lethargic (3) Cerebral atherosclerosis Status: Acute Plan to address problem: Risk factor reduction, antiplatelet therapy, supportive care. (4) Debility Status: Acute Plan to address problem: Physical therapy consulted, Occupational Therapy consulted (5) Diabetes Status: Acute Plan to address problem: Medications adjusted (6) Hypertension Status: Acute Qualifiers: Hypertension type: primary hypertension Qualified Code(s): I10 - Essential (primary) hypertension Plan to address problem: Medications adjusted (7) DVT prophylaxis Status: Acute Plan to address problem: SCD to bilateral lower extremities while in bed, continue therapeutic anticoagulation with Pradaxa (8) Advance care planning Status: Acute Plan to address problem: Disease education conducted, care plan discussed, diagnosis discussed, prognosis discussed. Patient at bedside during exam and interview and voices concerns regarding patient prognosis. Patient request home hospice evaluation. Home hospice team notified. Home evaluation arranged. Patient knowledges understanding and agreement with care plan, +30 minutes. Subjective Date of service: 11/19/20 Principal diagnosis: Acute CVA Interval history: 75 YO Male with HTN, DM, HLD, CVA x3 complicated by Dysarthria, and Debility currently on therapeutic anticoagulation with Pradaxa, Vascular Dementia with Behavioral Disturbance, Cerebral Atherosclerosis presents to ED for evaluation. Patient has diminished cognition and is unable to provide history at the time my evaluation. Patient is at bedside during exam and interview and provides history. Patient reports that patient has experienced progressive muscular weakness over the past 3 months with persistently worsening symptoms over the same timeframe. Patient is currently bedbound and nonambulatory. Patient currently requires 5/6 assistance with activities of daily living. Patient has a palliative performance score of 30%. Patient exhibits tangential thinking as well as confusion and agitation during evening hours. Patient reports that patient was found to have new onset left arm weakness today. EMS was notified and upon arrival the patient was found to be in distress with a neurologic deficit. A code stroke was called and the patient was transported to [facility] for further care and evaluation of the aforementioned symptoms. The patient was seen and evaluated in the emergency department. All lab and imaging studies reviewed. Patient found to have some clinical symptoms consistent with CVA. Patient placed in observation status and admitted to telemetry and initiated on CVA protocol. No reports of fever, chills, chest pain, palpitation, productive cough, skin rash, recent ill contacts, trauma, or known exposure to COVID-19. No prior admission for review. All medication listed at time of admission has been reconciled. Advanced care planning conducted in ED. 11/17/20 L sided hemiplegia D/w 11/18/20 L side hemiplegia D/w daughter 11/19/2020 Left-sided hemiplegia MRI ordered as urgent because it was not done on the weekend Neurology consult requested today Objective - Constitutional Vitals: Vital Signs - 12hr 11/19/20 11/19/20 11/19/20 03:53 06:00 07:24 Temperature 97.9 F 97.9 F Pulse Rate 72 75 77 Respiratory 16 20 Rate Blood Pressure 177/88 167/100 O2 Sat by Pulse 91 95 Oximetry 11/19/20 11:41 Temperature 97.8 F Pulse Rate 76 Respiratory 20 Rate Blood Pressure 158/92 O2 Sat by Pulse 94 Oximetry General appearance: Present: no acute distress, well-nourished - EENT Eyes: PERRL, EOM intact ENT: hearing intact, clear oral mucosa Ears: bilateral: normal - Neck Neck: supple, normal ROM - Respiratory Respiratory effort: normal Respiratory: bilateral: CTA - Breasts Breasts: normal - Cardiovascular Heart rate: 78 Rhythm: regular Heart Sounds: Present: S1 & S2. Absent: gallop, rub Extremities: pulses intact, No edema, normal color, Full ROM - Gastrointestinal General gastrointestinal: Present: soft, non-tender, non-distended, normal bowel sounds - Genitourinary Male genitourinary: normal - Integumentary Integumentary: clear, warm, dry - Musculoskeletal Musculoskeletal: strength equal bilaterally, left sided weakness (0/5 power) - Neurologic Neurologic: focal deficits (Left-sided hemiplegia), moves all extremities - Psychiatric Psychiatric: appropriate mood/affect, depressed - Allied health notes Allied health notes reviewed: nursing, PT, social work, case management - Labs CBC & Chem 7: 11/16/20 15:17 11/16/20 15:17 HEART Score - HEART Score Troponin: Troponin T < 0.010 ng/mL (0.00-0.029) 11/16/20 15:17
--- NOTE | 2020-11-19 13:52 | Consultation ---
History of Present Illness Consult date: 11/19/20 Reason for Consult: CVA,and dementia History of present illness: He is weak on that left side History of present illness: 75 YO Male with HTN, DM, HLD, CVA x3 complicated by slurred speech , and Debility currently on therapeutic anticoagulation with Pradaxa? rx by PCP , Vascular Dementia with Behavioral Disturbance, Cerebral Atherosclerosis presents to ED for evaluation. Patient has diminished cognition and is unable to provide history at the time my evaluation. Patient is at bedside during exam and interview and provides history. According to was able to walk using walker until last thursday she noted new onset left side weakness and she brought him to Er for assesment he is with hx of underlying dementia as well as diffisulty bladder control for last 5 years . pt. at time get confusion and agitation during evening hours. Patient reports that patient was found to have new onset left arm weakness today. EMS was notified and upon arrival the patient was found to be in distress with a neurologic deficit. A code stroke was called and the patient was transported to [facility] for further care and evaluation of the aforementioned symptoms. The patient was seen and evaluated in the emergency department. All lab and imaging studies reviewed. Patient found to have some clinical symptoms consistent with CVA. Patient placed in observation status and admitted to telemetry and initiated on CVA protocol. No reports of fever, chills, chest pain, palpitation, productive cough, skin rash, recent ill contacts, trauma, or known exposure to COVID-19. No prior admission for review. All medication listed at time of admission has been reconciled. Advanced care planning conducted in ED. Past History Past Medical History: diabetes, hypertension, hyperlipidemia, stroke, other (See HPI) Past Surgical History: No surgical history, Other (Reviewed) Social history: , lives with family. denies: smoking, alcohol abuse, prescription drug abuse Family history: CAD, hypertension Medications and Allergies Active Meds: Active Medications Aspirin (Aspirin 81 Mg Tab Chew) 324 mg PO ONCE ONE Stop: 11/16/20 16:20 Review of Systems ROS unobtainable: due to mental status Past History Past Medical History: diabetes, hypertension, hyperlipidemia, stroke, other (See HPI) Past Surgical History: No surgical history, Other (Reviewed) Social history: , lives with family. denies: smoking, alcohol abuse, prescription drug abuse Family history: CAD, hypertension Medications and Allergies Allergies Allergy/AdvReac Type Severity Reaction Status Date / Time hydrochlorothiazide Allergy Unknown Verified 11/16/20 18:45 Sulfa (Sulfonamide Allergy Hives Verified 11/16/20 18:45 Antibiotics) amlodipine AdvReac Swelling Verified 11/16/20 18:45 Home Medications Medication Instructions Recorded Confirmed Last Taken Type Adult Multivitamin Extra D3 1,000 mg PO DAILY 11/18/20 11/18/20 Unknown History AtorvaSTATin [Lipitor] 20 mg PO HS 11/18/20 11/18/20 Unknown History Dabigatran [Pradaxa] 150 mg PO BID 11/18/20 11/18/20 Unknown History Mecobalamin [B12 Active] 1,000 mg PO DAILY 11/18/20 11/18/20 Unknown History Spironolactone 25 mg PO DAILY 11/18/20 11/18/20 Unknown History atenoloL [Tenormin] 25 mg PO DAILY 11/18/20 11/18/20 Unknown History hydrALAZINE 25 mg PO BID 11/18/20 11/18/20 Unknown History lisinopriL [Lisinopril] See Protocol PO DAILY 11/18/20 11/18/20 Unknown History Active Meds: Active Medications Acetaminophen (Acetaminophen 325 Mg Tab) 650 mg PO Q4H PRN PRN Reason: Pain, Mild (1-3) Albuterol (Albuterol 2.5 Mg/3 Ml Nebu) 2.5 mg IH Q3HRT PRN PRN Reason: Shortness Of Breath Atorvastatin Calcium (Atorvastatin 40 Mg Tab) 40 mg PO QHS DOMI Last Admin: 11/18/20 21:38 Dose: 40 mg Documented by: Bisacodyl (Bisacodyl 10 Mg Rect Supp) 10 mg [place] QDAY PRN PRN Reason: Constipation Hydromorphone HCl (Hydromorphone 1 Mg/1 Ml Inj) 0.5 mg IV Q12H PRN PRN Reason: Pain , Severe (7-10) Magnesium Hydroxide (Magnesium Hydroxide (Mom) Oral Liqd Udc) 30 ml PO Q4H PRN PRN Reason: Constipation Metoclopramide HCl (Metoclopramide 10 Mg Tab) 10 mg PO Q6H PRN PRN Reason: Nausea And Vomiting Ondansetron HCl (Ondansetron 4 Mg/2 Ml Inj) 4 mg IV Q8H PRN PRN Reason: Nausea And Vomiting Oxycodone/Acetaminophen (Oxycodone /Acetaminophen 5-325mg Tab) 1 tab PO Q12H PRN PRN Reason: Pain, Moderate (4-6) Promethazine HCl (Promethazine 25 Mg Rect Supp) 25 mg [place] Q6H PRN PRN Reason: Nausea And Vomiting Sodium Chloride (Sodium Chloride 0.9% 10 Ml Flush Syringe) 10 ml IV PRN PRN PRN Reason: LINE FLUSH Physical Examination - Vital Signs Vital Signs: Vital Signs Temp Pulse Resp BP Pulse Ox 98.3 F 62 14 150/92 98 11/16/20 15:14 11/16/20 15:14 11/16/20 15:14 11/16/20 15:14 11/16/20 15:14 - Constitutional General appearance: comfortable, other (alert with significant subciortical dementia , he is with slurred speech and delayed response to questioning as well as disorientation to place and date , but he recognize his , he is with left side neglect , sitting in bed eating ) - EENT EENT: Present: PERRL, mucous membranes moist - Respiratory Respiratory: Present: chest non-tender, lungs clear, rhonchi - Cardiovascular Cardiovascular: Present: regular rate, normal S1, normal S2 Extremities: Present: no peripheral edema bilatateraly, pitting edema - Gastrointestinal Gastrointestinal: Present: normoactive bowel sounds - Integumentary Integumentary: Present: normal - Neurologic Cranial nerve examination: other (alert slurred speech , left visual neglect ) Sensorimotor examination: other (diffuse rigidity with sigificant left side weakness planter is down ,bilateral , and unable to ambulate.) Results - Laboratory Findings CBC and BMP: 11/16/20 15:17 11/16/20 15:17 Abnormal Lab Findings: Abnormal Labs 11/16/20 11/16/20 11/16/20 15:17 15:17 15:17 Lymph # (Auto) 1.0 L Thrombin Time 79.1 H Sodium 135 L Glucose 139 H POC Glucose HDL Cholesterol Ur Specific [place] 11/16/20 11/17/20 11/17/20 Unknown 05:04 11:14 Lymph # (Auto) Thrombin Time Sodium Glucose POC Glucose 163 H HDL Cholesterol 29 L Ur Specific [place] 1.036 H 11/17/20 16:40 Lymph # (Auto) Thrombin Time Sodium Glucose POC Glucose 133 H HDL Cholesterol Ur Specific [place] Assessment and Plan Assessment and Plan - Patient Problems # left side weakness with left visual neglect Ct brain is with right parietal infarct -timing of CVA is not clear according to she noted left side weakness by Thursday -he is with hx of previous CVA and use walker for ambulation , he is with bladder incontinence and significant dementia as per -pt, is on Pradexa at home ? - MRI brain is pending -CTA brain and neck is remarkable for diffuse atherosclerotic disease -echo --EF#60-65% with NSR -US carotid <50 % bilateral -ASA 325 mg daily -LDL#55 on lipitor 40 mg daily -A1C# is pending -ESR,MINISTERIO,B12,TSH , RPR are pending #Possible Vascular dementia with behavioral disturbance -possibility of NPH # Cerebral atherosclerosis -Risk factor reduction, antiplatet therapy, and lipitor , supportive care. # Debility -Physical therapy consulted, Occupational Therapy consulted # Diabetes -Consistent carbohydrate diet, hypoglycemia protocol, insulin protocol, -A1C is pending # Hypertension -Monitor blood pressure every shift, continue medical management, #DVT prophylaxis -SCD to bilateral lower extremities while in bed, continue therapeutic anticoagulation with Pradaxa # Advance care planning -Disease education conducted, care plan discussed, diagnosis discussed, prognosis discussed. Patient at bedside during exam and interview and voices concerns regarding patient prognosis. Patient request home hospice evaluation. Home hospice team notified. Home evaluation arranged. Patient knowledges understanding and agreement with care plan, +30 minutes. PLAN 1- brain MRI 2- B12,TSH,ESR,MINISTERIO,RPR,A1C 3- ASA 325 mg and lipitor 40 mg 4- cardiac monitoring 5-PT/ST evaluate 6- ? see no indication for Pradexa ? no hx of AF 7- Consider adding namenda 10 mg bid will follow
--- NOTE | 2020-11-19 17:51 | Electrocardiograph Report ---
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
[2020-11-20] MEDS: ASPIRIN EC 325 MG TAB PO SCH (10:09)
[2020-11-20] MEDS: MEMANTINE 5 MG TAB PO SCH ×2 (10:14→21:28)
--- NOTE | 2020-11-20 11:00 | Progress Note ---
Assessment and Plan Assessment and Plan - Patient Problems # left side weakness with left visual neglect Ct brain is with right parietal infarct -timing of CVA is not clear according to she noted left side weakness by Thursday -he is with hx of previous CVA and use walker for ambulation , he is with bladder incontinence and significant dementia as per -pt, is on Pradexa at home ? - MRI brain is suggestive of right parietal infarct consistent with the finding on CT brain -CTA brain and neck is remarkable for diffuse atherosclerotic disease -echo --EF#60-65% with NSR -US carotid <50 % bilateral -ASA 325 mg daily -LDL#55 on lipitor 40 mg daily -A1C# is #7.1 -ESR,MINISTERIO,B12,TSH , RPR are WNL #Possible Vascular dementia with behavioral disturbance -possibility of NPH not confirmed on radiological study # Cerebral atherosclerosis -Risk factor reduction, antiplatet therapy, and lipitor , supportive care. # Debility and underlying advanced dementia mostly multifactorial -Physical therapy consulted, Occupational Therapy consulted -start namenda 5 mg bid # Diabetes -Consistent carbohydrate diet, hypoglycemia protocol, insulin protocol, -A1C #7.1 -need A1C <7 # Hypertension -Monitor blood pressure every shift, continue medical management, -BP need <150/80 #DVT prophylaxis -SCD to bilateral lower extremities while in bed, continue therapeutic anticoagulation with Pradaxa # Advance care planning -Disease education conducted, care plan discussed, diagnosis discussed, prognosis discussed. Patient at bedside during exam and interview and voices concerns regarding patient prognosis. Patient request home hospice evaluation. Home hospice team notified. Home evaluation arranged. Patient knowledges understanding and agreement with care plan, +30 minutes. PLAN 1- ASA 325 mg and lipitor 40 mg 2- cardiac monitoring 3-PT/ST evaluate and rehabilitation 4- ? see no indication for Pradexa ? no hx of AF 5- Consider adding namenda 5 mg bid 6- better control BP and BS 7- Neurology follow up will sign off Subjective Date of service: 11/20/20 Principal diagnosis: Acute CVA Interval history: more alert with slight orientation he is with left side weakness , had MRI brain today Objective - Vital Sign Vital Signs - 12hr 11/20/20 11/20/20 05:00 08:02 Temperature 99.4 F 98.3 F Pulse Rate 78 Respiratory 16 20 Rate Blood Pressure 118/70 141/90 O2 Sat by Pulse 94 Oximetry - General Apperance Constitutional: comfortable - EENT EENT: PERRL, mucous membranes moist - Respiratory Respiratory: chest non-tender, lungs clear, rhonchi - Cardiovascular Cardiovascular: regular rate, normal S1, normal S2 Extremities: no peripheral edema bilat, no clubbing, cyanosis - Gastrointestinal Gastrointestinal: normoactive bowel sounds - Integumentary Integumentary: normal - Neurologic Cranial nerve examination: PERRL, EOMI, other (left visual negelect slight left facial droop ) Detailed motor examination: other (weakness left upper and to lesser extent l ower ext. gait not done ) - Laboratory Findings CBC and BMP: 11/16/20 15:17 11/16/20 15:17 Abnormal Lab Findings: Abnormal Labs 11/16/20 11/16/20 11/16/20 15:17 15:17 15:17 Lymph # (Auto) 1.0 L Thrombin Time 79.1 H Sodium 135 L Glucose 139 H POC Glucose Hemoglobin A1c HDL Cholesterol Ur Specific [place] 11/16/20 11/17/20 11/17/20 Unknown 05:04 11:14 Lymph # (Auto) Thrombin Time Sodium Glucose POC Glucose 163 H Hemoglobin A1c HDL Cholesterol 29 L Ur Specific [place] 1.036 H 11/17/20 11/19/20 16:40 15:56 Lymph # (Auto) Thrombin Time Sodium Glucose POC Glucose 133 H Hemoglobin A1c 7.1 H HDL Cholesterol Ur Specific [place]
--- NOTE | 2020-11-20 12:07 | Progress Note ---
Assessment and Plan Assessment and plan: --Acute CVA (cerebrovascular accident) right parietal infarct CVA protocol: CT scan head, carotid Doppler, echocardiogram, continue antiplatelet therapy, telemetry neurology team consulted in ED, physical therapy consulted, Occupational Therapy consulted, speech therapy consulted, MRI; right parietal infarct L Hemiplegia; PT OT supportive care Needs acute rehab/subacute rehab --Left-sided hemiparesis; Right parietal infarct, PT OT Acute rehab vs subacute rehab placement when stable --Vascular dementia with behavioral disturbance Verbal prompting, verbal redirection, benzodiazepine therapy As clinically indicated, supportive care. Lethargic --Cerebral atherosclerosis Risk factor reduction, antiplatelet therapy, supportive care. Right parietal infarct, with left hemiparesis, PT OT rehab --General debility Physical therapy consulted, Occupational Therapy consulted Acute rehab placement --Diabetes Accu-Chek sliding scale coverage ADA diet insulin as needed medications adjusted --Hypertension Continue antihypertensives and as needed medications -- DVT prophylaxis SCD to bilateral lower extremities while in bed, continue therapeutic anticoagulation with Pradaxa --Advance care planning Disease education conducted, care plan discussed, diagnosis discussed, prognosis discussed. Patient at bedside during exam and interview and voices concerns regarding patient prognosis. Patient request home hospice evaluation. Home hospice team notified. Home evaluation arranged. Patient knowledges understanding and agreement with care plan, +30 minutes. Brief history and daily hospital course; 75 YO Male with HTN, DM, HLD, CVA x3 complicated by Dysarthria, and Debility currently on therapeutic anticoagulation with Pradaxa, Vascular Dementia with Behavioral Disturbance, Cerebral Atherosclerosis presents to ED for evaluation. Patient has diminished cognition and is unable to provide history at the time my evaluation. Patient is at bedside during exam and interview and provides history. Patient reports that patient has experienced progressive muscular weakness over the past 3 months with persistently worsening symptoms over the same timeframe. Patient is currently bedbound and nonambulatory. Patient currently requires 5/6 assistance with activities of daily living. Patient has a palliative performance score of 30%. Patient exhibits tangential thinking as well as confusion and agitation during evening hours. Patient reports that patient was found to have new onset left arm weakness today. EMS was notified and upon arrival the patient was found to be in distress with a neurologic deficit. A code stroke was called and the patient was transported to [facility] for further care and evaluation of the aforementioned symptoms. The patient was seen and evaluated in the emergency department. All lab and imaging studies r eviewed. Patient found to have some clinical symptoms consistent with CVA. Patient placed in observation status and admitted to telemetry and initiated on CVA protocol. No reports of fever, chills, chest pain, palpitation, productive cough, skin rash, recent ill contacts, trauma, or known exposure to COVID-19. No prior admission for review. All medication listed at time of admission has been reconciled. Advanced care planning conducted in ED. 11/17/20 L sided hemiplegia D/w 11/18/20 L side hemiplegia D/w daughter 11/19/2020 Left-sided hemiplegia MRI ordered as urgent because it was not done on the weekend Neurology consult requested today 11/20/2020; Follow PT OT evaluation and recommendations Possible acute rehab vs subacute unstable DC planning per case management History Interval history: I have seen and examined the patient at the bedside Patient's chart and medications reviewed No new events reported by the nursing Awaiting placement Hospitalist Physical - Constitutional Vitals: Temp Pulse Resp BP Pulse Ox 98.3 F 78 20 141/90 94 11/20/20 08:02 11/20/20 05:00 11/20/20 08:02 11/20/20 08:02 11/20/20 05:00 General appearance: Present: no acute distress, well-nourished - EENT Eyes: Present: PERRL. Absent: scleral icterus ENT: hearing intact, clear oral mucosa - Neck Neck: Present: supple, normal ROM - Respiratory Respiratory effort: normal Respiratory: bilateral: diminished, negative: rales, rhonchi, wheezing - Cardiovascular Rhythm: regular Heart Sounds: Present: S1 & S2 - Extremities Extremities: no ischemia, No edema - Abdominal General gastrointestinal: soft, non-tender, non-distended, normal bowel sounds - Integumentary Integumentary: Present: clear, warm - Psychiatric Psychiatric: appropriate mood/affect, cooperative - Neurologic Neurologic: moves all extremities (Acute CVA with left hemiparesis) HEART Score - HEART Score Troponin: Troponin T < 0.010 ng/mL (0.00-0.029) 11/16/20 15:17 Results - Labs CBC & Chem 7: 11/16/20 15:17 11/16/20 15:17 Labs: Laboratory Last Values WBC 5.2 K/mm3 (4.5-11.0) 11/16/20 15:17 RBC 4.49 M/mm3 (3.65-5.03) 11/16/20 15:17 Hgb 13.8 gm/dl (11.8-15.2) 11/16/20 15:17 Hct 41.0 % (35.5-45.6) 11/16/20 15:17 MCV 91 fl (84-94) 11/16/20 15:17 MCH 31 pg (28-32) 11/16/20 15:17 MCHC 34 % (32-34) 11/16/20 15:17 RDW 13.8 % (13.2-15.2) 11/16/20 15:17 Plt Count 148 K/mm3 (140-440) 11/16/20 15:17 Lymph % (Auto) 19.7 % (13.4-35.0) 11/16/20 15:17 [place] % (Auto) 7.2 % (0.0-7.3) 11/16/20 15:17 Eos % (Auto) 3.4 % (0.0-4.3) 11/16/20 15:17 Baso % (Auto) 0.9 % (0.0-1.8) 11/16/20 15:17 Lymph # (Auto) 1.0 K/mm3 (1.2-5.4) L 11/16/20 15:17 [place] # (Auto) 0.4 K/mm3 (0.0-0.8) 11/16/20 15:17 Eos # (Auto) 0.2 K/mm3 (0.0-0.4) 11/16/20 15:17 Baso # (Auto) 0.0 K/mm3 (0.0-0.1) 11/16/20 15:17 Seg Neutrophils % 68.8 % (40.0-70.0) 11/16/20 15:17 Seg Neutrophils # 3.6 K/mm3 (1.8-7.7) 11/16/20 15:17 ESR 10 mm/Hr (0-20) 11/19/20 15:56 PT 13.8 Sec. (12.2-14.9) 11/16/20 15:17 INR 1.00 (0.87-1.13) 11/16/20 15:17 APTT 29.1 Sec. (24.2-36.6) 11/16/20 15:17 Thrombin Time 79.1 Sec. (15.1-19.6) H 11/16/20 15:17 Sodium 135 mmol/L (137-145) L 11/16/20 15:17 Potassium 4.3 mmol/L (3.6-5.0) 11/16/20 15:17 Chloride 101.0 mmol/L (98-107) 11/16/20 15:17 Carbon Dioxide 25 mmol/L (22-30) 11/16/20 15:17 Anion Gap 13 mmol/L 11/16/20 15:17 BUN 18 mg/dL (9-20) 11/16/20 15:17 Creatinine 1.2 mg/dL (0.8-1.3) 11/16/20 15:17 Estimated GFR 59 ml/min 11/16/20 15:17 BUN/Creatinine Ratio 15 % 11/16/20 15:17 Glucose 139 mg/dL (75-100) H 11/16/20 15:17 POC Glucose 133 mg/dL (70-105) H 11/17/20 16:40 Hemoglobin A1c 7.1 % (4-6) H 11/19/20 15:56 Calcium 8.7 mg/dL (8.4-10.2) 11/16/20 15:17 Troponin T < 0.010 ng/mL (0.00-0.029) 11/16/20 15:17 Triglycerides 109 mg/dL (2-149) 11/17/20 05:04 Cholesterol 92 mg/dL (50-199) 11/17/20 05:04 LDL Cholesterol Direct 55 mg/dL (50-130) 11/17/20 05:04 HDL Cholesterol 29 mg/dL (40-59) L 11/17/20 05:04 Cholesterol/HDL Ratio 3.17 % 11/17/20 05:04 Vitamin B12 834.8 pg/mL (211-911) 11/19/20 15:56 TSH 1.780 mlU/mL (0.270-4.200) 11/19/20 15:56 Urine Color Yellow (Yellow) 11/16/20 Unknown Urine Turbidity Clear (Clear) 11/16/20 Unknown Urine pH 6.0 (5.0-7.0) 11/16/20 Unknown Ur Specific [place] 1.036 (1.003-1.030) H 11/16/20 Unknown Urine Protein <15 mg/dl mg/dL (Negative) 11/16/20 Unknown Urine Glucose (UA) Neg mg/dL (Negative) 11/16/20 Unknown Urine Ketones Neg mg/dL (Negative) 11/16/20 Unknown Urine Blood Neg (Negative) 11/16/20 Unknown Urine Nitrite Neg (Negative) 11/16/20 Unknown Urine Bilirubin Neg (Negative) 11/16/20 Unknown Urine Urobilinogen 4.0 mg/dL (<2.0) 11/16/20 Unknown Ur Leukocyte Esterase Neg (Negative) 11/16/20 Unknown Urine WBC (Auto) 1.0 /HPF (0.0-6.0) 11/16/20 Unknown Urine RBC (Auto) 0.0 /HPF (0.0-6.0) 11/16/20 Unknown U Epithel Cells (Auto) < 1.0 /HPF (0-13.0) 11/16/20 Unknown Urine Opiates Screen Presumptive negative 11/16/20 Unknown Urine Methadone Screen Presumptive negative 11/16/20 Unknown Ur Barbiturates Screen Presumptive negative 11/16/20 Unknown Ur Phencyclidine Scrn Presumptive negative 11/16/20 Unknown Ur Amphetamines Screen Presumptive negative 11/16/20 Unknown U Benzodiazepines Scrn Presumptive negative 11/16/20 Unknown Urine Cocaine Screen Presumptive negative 11/16/20 Unknown U Marijuana (THC) Screen Presumptive negative 11/16/20 Unknown Drugs of Abuse Note Disclamer 11/16/20 Unknown Syphilis IgG Antibody Nonreactive (NonReactive) 11/19/20 15:56 De Souza/IV: Voiding Method Incontinent Active Medications - Current Medications Current Medications: Generic Name Dose Route Start Last Admin Trade Name Freq PRN Reason Stop Dose Admin Acetaminophen 650 mg 11/16/20 16:26 Acetaminophen 325 Mg Tab PO Q4H PRN Pain, Mild (1-3) Albuterol 2.5 mg 11/16/20 16:26 Albuterol 2.5 Mg/3 Ml Nebu IH Q3HRT PRN Shortness Of Breath Aspirin 325 mg 11/20/20 10:00 11/20/20 10:09 Aspirin Ec 325 Mg Tab PO 325 mg QDAY DOMI Administration Atorvastatin Calcium 40 mg 11/16/20 22:00 11/19/20 22:27 Atorvastatin 40 Mg Tab PO 40 mg QHS DOMI Administration Bisacodyl 10 mg 11/16/20 16:26 Bisacodyl 10 Mg Rect Supp [place] QDAY PRN Constipation Hydromorphone HCl 0.5 mg 11/16/20 16:26 Hydromorphone 1 Mg/1 Ml Inj IV Q12H PRN Pain , Severe (7-10) Magnesium Hydroxide 30 ml 11/16/20 16:26 Magnesium Hydroxide (Mom) Oral Liqd Udc PO Q4H PRN Constipation Memantine 5 mg 11/20/20 10:00 11/20/20 10:14 Memantine 5 Mg Tab PO 5 mg Q12HR DOMI Administration Metoclopramide HCl 10 mg 11/16/20 16:26 Metoclopramide 10 Mg Tab PO Q6H PRN Nausea And Vomiting Ondansetron HCl 4 mg 11/16/20 16:26 Ondansetron 4 Mg/2 Ml Inj IV Q8H PRN Nausea And Vomiting Oxycodone/Acetaminophen 1 tab 11/16/20 16:26 Oxycodone /Acetaminophen 5-325mg Tab PO Q12H PRN Pain, Moderate (4-6) Promethazine HCl 25 mg 11/16/20 16:26 Promethazine 25 Mg Rect Supp [place] Q6H PRN Nausea And Vomiting Sodium Chloride 10 ml 11/16/20 16:26 Sodium Chloride 0.9% 10 Ml Flush Syringe IV PRN PRN LINE FLUSH
--- NOTE | 2020-11-20 12:54 | Magnetic Resonance Report ---
MR brain wo con INDICATION / CLINICAL INFORMATION: CVA, MUSCLE WEAKNESS. TECHNIQUE: Multiplanar, multisequence MR images of the brain were obtained. COMPARISON: CT head 11/16/2020 FINDINGS: INTRACRANIAL: Right watershed distribution restricted diffusion involving the frontal, parietal, and occipital lobes. There is associated T2 signal hyperintensity. Periventricular and centrum semiovale T2 white matter hyperintensities most consistent with sequela of chronic microvascular disease. No h emorrhage. Ventricular caliber is normal. No extra-axial collection. No mass. No herniation. Major i ntracranial vascular flow voids are preserved. ORBITS: No significant abnormality of visualized orbits. SINUSES / MASTOIDS: Left mastoid effusion. Mild mucosal thickening in the paranasal sinuses. Right ma stoid air cells are essentially clear. ADDITIONAL FINDINGS: None. IMPRESSION: 1. Acute right watershed distribution infarctions. Signer Name: Amol Vega MD Signed: 11/20/2020 12:50 PM Workstation Name: [id number]
[2020-11-21] MEDS: ASPIRIN EC 325 MG TAB PO SCH (09:17)
[2020-11-21] MEDS: MEMANTINE 5 MG TAB PO SCH ×2 (09:18→21:38)
--- NOTE | 2020-11-21 16:54 | Progress Note ---
Assessment and Plan Assessment and plan: --Acute metabolic encephalopathy; Due to acute CVA. Vascular dementia Treat the underlying cause, supportive care --Vascular dementia with behavioral disturbance Continue supportive care, PT OT speech therapy. 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 Right parietal infarct, with left hemiparesis, PT OT rehab --General debility Physical therapy consulted, Occupational Therapy consulted Acute rehab placement --Diabetes type II Accu-Chek sliding scale coverage ADA diet insulin as needed medications adjusted --Hypertension Continue antihypertensives and as needed medications -- DVT prophylaxis SCD to bilateral lower extremities while in bed, continue therapeutic anticoagulation with Pradaxa --Advance care planning Disease education conducted, care plan discussed, diagnosis discussed, prognosis discussed. Patient at bedside during exam and interview and voices concerns regarding patient prognosis. Patient request home hospice evaluation. Home hospice team notified. Home evaluation arranged. Patient knowledges understanding and agreement with care plan, +30 minutes. Brief history and daily hospital course; 75 YO Male with HTN, DM, HLD, CVA x3 complicated by Dysarthria, and Debility currently on therapeutic anticoagulation with Pradaxa, Vascular Dementia with Behavioral Disturbance, Cerebral Atherosclerosis presents to ED for evaluation. Patient has diminished cognition and is unable to provide history at the time my evaluation. Patient is at bedside during exam and interview and provides history. Patient reports that patient has experienced progressive muscular weakness over the past 3 months with persistently worsening symptoms over the same timeframe. Patient is currently bedbound and nonambulatory. Patient currently requires 5/6 assistance with activities of daily living. Patient has a palliative performance score of 30%. Patient exhibits tangential thinking as well as confusion and agitation during evening hours. Patient reports that patient was found to have new onset left arm weakness today. EMS was notified and upon arrival the patient was found to be in distress with a neurologic deficit. A code stroke was called and the patient was transported to [facility] for further care and evaluation of the aforementioned symptoms. The patient was seen and evaluated in the emergency department. All lab and imaging studies reviewed. Patient found to have some clinical symptoms consistent with CVA. Patient placed in observation status and admitted to telemetry and initiated on CVA protocol. No reports of fever, chills, chest pain, palpitation, productive cough, skin rash, recent ill contacts, trauma, or known exposure to COVID-19. No prior admission for review. All medication listed at time of admission has been reconciled. Advanced care planning conducted in ED. 11/17/20 L sided hemiplegia D/w 11/18/20 L side hemiplegia D/w daughter 11/19/2020 Left-sided hemiplegia MRI ordered as urgent because it was not done on the weekend Neurology consult requested today 11/20/2020; Follow PT OT evaluation and recommendations Possible acute rehab vs subacute unstable 11/21/2020; patient is medically stable for discharge to subacute rehab Pending insurance authorization Discussed with son I discussed in detail with patient's son Mr. Corona Jesus, patient's condition Patient reports, consultants recommendations, treatment and discharge planning To subacute rehab when placement is processed. He had questions answered all of them Encouraged him to call back if he has new concerns. Patient's nurse was in the room when I discussed with the son over the phone DC planning per case management History Interval history: i Seen and examined the patient at the bedside this afternoon Patient's chart and medications reviewed Patient is noncommunicative, confused Dense left hemiparesis, Vital signs reviewed No new overnight events reported by the nursing Hospitalist Physical - Constitutional Vitals: Temp Pulse Resp BP Pulse Ox 97.2 F L 65 20 157/80 94 11/21/20 08:18 11/21/20 08:18 11/21/20 08:18 11/21/20 08:18 11/21/20 08:18 General appearance: Present: no acute distress, well-nourished, other - EENT Eyes: Present: PERRL, EOM intact - Neck Neck: Present: supple (Noncommunicative), normal ROM - Respiratory Respiratory effort: normal Respiratory: bilateral: diminished, negative: rales, rhonchi, wheezing - Cardiovascular Rhythm: regular Heart Sounds: Present: S1 & S2 - Extremities Extremities: no ischemia, No edema - Abdominal General gastrointestinal: soft, non-tender, non-distended, normal bowel sounds - Integumentary Integumentary: Present: clear, warm - Psychiatric Psychiatric: other (Noncommunicative) - Neurologic Neurologic: moves all extremities (Acute CVA with left hemiparesis, aphasia) HEART Score - HEART Score Troponin: Troponin T < 0.010 ng/mL (0.00-0.029) 11/16/20 15:17 Results - Labs CBC & Chem 7: 11/16/20 15:17 11/16/20 15:17 Labs: Laboratory Last Values WBC 5.2 K/mm3 (4.5-11.0) 11/16/20 15:17 RBC 4.49 M/mm3 (3.65-5.03) 11/16/20 15:17 Hgb 13.8 gm/dl (11.8-15.2) 11/16/20 15:17 Hct 41.0 % (35.5-45.6) 11/16/20 15:17 MCV 91 fl (84-94) 11/16/20 15:17 MCH 31 pg (28-32) 11/16/20 15:17 MCHC 34 % (32-34) 11/16/20 15:17 RDW 13.8 % (13.2-15.2) 11/16/20 15:17 Plt Count 148 K/mm3 (140-440) 11/16/20 15:17 Lymph % (Auto) 19.7 % (13.4-35.0) 11/16/20 15:17 [place] % (Auto) 7.2 % (0.0-7.3) 11/16/20 15:17 Eos % (Auto) 3.4 % (0.0-4.3) 11/16/20 15:17 Baso % (Auto) 0.9 % (0.0-1.8) 11/16/20 15:17 Lymph # (Auto) 1.0 K/mm3 (1.2-5.4) L 11/16/20 15:17 [place] # (Auto) 0.4 K/mm3 (0.0-0.8) 11/16/20 15:17 Eos # (Auto) 0.2 K/mm3 (0.0-0.4) 11/16/20 15:17 Baso # (Auto) 0.0 K/mm3 (0.0-0.1) 11/16/20 15:17 Seg Neutrophils % 68.8 % (40.0-70.0) 11/16/20 15:17 Seg Neutrophils # 3.6 K/mm3 (1.8-7.7) 11/16/20 15:17 ESR 10 mm/Hr (0-20) 11/19/20 15:56 PT 13.8 Sec. (12.2-14.9) 11/16/20 15:17 INR 1.00 (0.87-1.13) 11/16/20 15:17 APTT 29.1 Sec. (24.2-36.6) 11/16/20 15:17 Thrombin Time 79.1 Sec. (15.1-19.6) H 11/16/20 15:17 Sodium 135 mmol/L (137-145) L 11/16/20 15:17 Potassium 4.3 mmol/L (3.6-5.0) 11/16/20 15:17 Chloride 101.0 mmol/L (98-107) 11/16/20 15:17 Carbon Dioxide 25 mmol/L (22-30) 11/16/20 15:17 Anion Gap 13 mmol/L 11/16/20 15:17 BUN 18 mg/dL (9-20) 11/16/20 15:17 Creatinine 1.2 mg/dL (0.8-1.3) 11/16/20 15:17 Estimated GFR 59 ml/min 11/16/20 15:17 BUN/Creatinine Ratio 15 % 11/16/20 15:17 Glucose 139 mg/dL (75-100) H 11/16/20 15:17 POC Glucose 133 mg/dL (70-105) H 11/17/20 16:40 Hemoglobin A1c 7.1 % (4-6) H 11/19/20 15:56 Calcium 8.7 mg/dL (8.4-10.2) 11/16/20 15:17 Troponin T < 0.010 ng/mL (0.00-0.029) 11/16/20 15:17 Triglycerides 109 mg/dL (2-149) 11/17/20 05:04 Cholesterol 92 mg/dL (50-199) 11/17/20 05:04 LDL Cholesterol Direct 55 mg/dL (50-130) 11/17/20 05:04 HDL Cholesterol 29 mg/dL (40-59) L 11/17/20 05:04 Cholesterol/HDL Ratio 3.17 % 11/17/20 05:04 Vitamin B12 834.8 pg/mL (211-911) 11/19/20 15:56 TSH 1.780 mlU/mL (0.270-4.200) 11/19/20 15:56 Urine Color Yellow (Yellow) 11/16/20 Unknown Urine Turbidity Clear (Clear) 11/16/20 Unknown Urine pH 6.0 (5.0-7.0) 11/16/20 Unknown Ur Specific [place] 1.036 (1.003-1.030) H 11/16/20 Unknown Urine Protein <15 mg/dl mg/dL (Negative) 11/16/20 Unknown Urine Glucose (UA) Neg mg/dL (Negative) 11/16/20 Unknown Urine Ketones Neg mg/dL (Negative) 11/16/20 Unknown Urine Blood Neg (Negative) 11/16/20 Unknown Urine Nitrite Neg (Negative) 11/16/20 Unknown Urine Bilirubin Neg (Negative) 11/16/20 Unknown Urine Urobilinogen 4.0 mg/dL (<2.0) 11/16/20 Unknown Ur Leukocyte Esterase Neg (Negative) 11/16/20 Unknown Urine WBC (Auto) 1.0 /HPF (0.0-6.0) 11/16/20 Unknown Urine RBC (Auto) 0.0 /HPF (0.0-6.0) 11/16/20 Unknown U Epithel Cells (Auto) < 1.0 /HPF (0-13.0) 11/16/20 Unknown Urine Opiates Screen Presumptive negative 11/16/20 Unknown Urine Methadone Screen Presumptive negative 11/16/20 Unknown Ur Barbiturates Screen Presumptive negative 11/16/20 Unknown Ur Phencyclidine Scrn Presumptive negative 11/16/20 Unknown Ur Amphetamines Screen Presumptive negative 11/16/20 Unknown U Benzodiazepines Scrn Presumptive negative 11/16/20 Unknown Urine Cocaine Screen Presumptive negative 11/16/20 Unknown U Marijuana (THC) Screen Presumptive negative 11/16/20 Unknown Drugs of Abuse Note Disclamer 11/16/20 Unknown Syphilis IgG Antibody Nonreactive (NonReactive) 11/19/20 15:56 De Souza/IV: Voiding Method Condom Catheter Active Medications - Current Medications Current Medications: Generic Name Dose Route Start Last Admin Trade Name Freq PRN Reason Stop Dose Admin Acetaminophen 650 mg 11/16/20 16:26 Acetaminophen 325 Mg Tab PO Q4H PRN Pain, Mild (1-3) Albuterol 2.5 mg 11/16/20 16:26 Albuterol 2.5 Mg/3 Ml Nebu IH Q3HRT PRN Shortness Of Breath Aspirin 325 mg 11/22/20 10:00 Aspirin 325 Mg Tab PO QDAY DOMI Atorvastatin Calcium 40 mg 11/16/20 22:00 11/20/20 21:28 Atorvastatin 40 Mg Tab PO 40 mg QHS DOMI Administration Bisacodyl 10 mg 11/16/20 16:26 Bisacodyl 10 Mg Rect Supp [place] QDAY PRN Constipation Hydromorphone HCl 0.5 mg 11/16/20 16:26 Hydromorphone 1 Mg/1 Ml Inj IV Q12H PRN Pain , Severe (7-10) Magnesium Hydroxide 30 ml 11/16/20 16:26 Magnesium Hydroxide (Mom) Oral Liqd Udc PO Q4H PRN Constipation Memantine 5 mg 11/20/20 10:00 11/21/20 09:18 Memantine 5 Mg Tab PO 5 mg Q12HR DOMI Administration Metoclopramide HCl 10 mg 11/16/20 16:26 Metoclopramide 10 Mg Tab PO Q6H PRN Nausea And Vomiting Ondansetron HCl 4 mg 11/16/20 16:26 Ondansetron 4 Mg/2 Ml Inj IV Q8H PRN Nausea And Vomiting Oxycodone/Acetaminophen 1 tab 11/16/20 16:26 Oxycodone /Acetaminophen 5-325mg Tab PO Q12H PRN Pain, Moderate (4-6) Promethazine HCl 25 mg 11/16/20 16:26 Promethazine 25 Mg Rect Supp [place] Q6H PRN Nausea And Vomiting Sodium Chloride 10 ml 11/16/20 16:26 Sodium Chloride 0.9% 10 Ml Flush Syringe IV PRN PRN LINE FLUSH
--- NOTE | 2020-11-21 16:56 | Event Note ---
Date: 11/21/20 I discussed in detail with patient's son Mr. Corona Jesus, patient's condition Patient reports, consultants recommendations, treatment and discharge planning To subacute rehab when placement is processed. He had some questions, I answered all of them. Encouraged him to call back if he has new concerns. Patient's nurse was in the room when I discussed with the son over the phone.
--- NOTE | 2020-11-21 19:38 | Progress Note ---
Assessment and Plan Assessment and plan: --Acute metabolic encephalopathy; Due to acute CVA. Vascular dementia Treat the underlying cause, supportive care --Vascular dementia with behavioral disturbance Continue supportive care, PT OT speech therapy. 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 Right parietal infarct, with left hemiparesis, PT OT rehab --General debility Physical therapy consulted, Occupational Therapy consulted Acute rehab placement --Diabetes type II Accu-Chek sliding scale coverage ADA diet insulin as needed medications adjusted --Hypertension Continue antihypertensives and as needed medications -- DVT prophylaxis SCD to bilateral lower extremities while in bed, continue therapeutic anticoagulation with Pradaxa --Advance care planning Disease education conducted, care plan discussed, diagnosis discussed, prognosis discussed. Patient at bedside during exam and interview and voices concerns regarding patient prognosis. Patient request home hospice evaluation. Home hospice team notified. Home evaluation arranged. Patient knowledges understanding and agreement with care plan, +30 minutes. Brief history and daily hospital course; 75 YO Male with HTN, DM, HLD, CVA x3 complicated by Dysarthria, and Debility currently on therapeutic anticoagulation with Pradaxa, Vascular Dementia with Behavioral Disturbance, Cerebral Atherosclerosis presents to ED for evaluation. Patient has diminished cognition and is unable to provide history at the time my evaluation. Patient is at bedside during exam and interview and provides history. Patient reports that patient has experienced progressive muscular weakness over the past 3 months with persistently worsening symptoms over the same timeframe. Patient is currently bedbound and nonambulatory. Patient currently requires 5/6 assistance with activities of daily living. Patient has a palliative performance score of 30%. Patient exhibits tangential thinking as well as confusion and agitation during evening hours. Patient reports that patient was found to have new onset left arm weakness today. EMS was notified and upon arrival the patient was found to be in distress with a neurologic deficit. A code stroke was called and the patient was transported to [facility] for further care and evaluation of the aforementioned symptoms. The patient was seen and evaluated in the emergency department. All lab and imaging studies reviewed. Patient found to have some clinical symptoms consistent with CVA. Patient placed in observation status and admitted to telemetry and initiated on CVA protocol. No reports of fever, chills, chest pain, palpitation, productive cough, skin rash, recent ill contacts, trauma, or known exposure to COVID-19. No prior admission for review. All medication listed at time of admission has been reconciled. Advanced care planning conducted in ED. 11/17/20 L sided hemiplegia D/w 11/18/20 L side hemiplegia D/w daughter 11/19/2020 Left-sided hemiplegia MRI ordered as urgent because it was not done on the weekend Neurology consult requested today 11/20/2020; Follow PT OT evaluation and recommendations Possible acute rehab vs subacute unstable 11/21/2020; patient is medically stable for discharge to subacute rehab Pending insurance authorization Discussed with son; 11/21/2020 I discussed in detail with patient's son Mr. Corona Jesus, patient's condition Patient reports, consultants recommendations, treatment and discharge planning To subacute rehab when placement is processed. He had questions answered all of them Encouraged him to call back if he has new concerns. Patient's nurse was in the room when I discussed with the son over the phone 11/22/2020; patient feels slightly better Awaiting placement History Interval history: I have seen and examined the patient at the bedside Patient's chart and medications reviewed Patient is minimally communicative alert and awake Vital signs noted Hospitalist Physical - Constitutional Vitals: Temp Pulse Resp BP Pulse Ox 97.2 F L 73 18 134/77 94 11/21/20 15:32 11/21/20 15:32 11/21/20 15:32 11/21/20 15:32 11/21/20 15:32 General appearance: Present: no acute distress, well-nourished - EENT Eyes: Present: PERRL, EOM intact - Neck Neck: Present: supple, normal ROM - Respiratory Respiratory effort: normal Respiratory: bilateral: diminished, negative: rales, rhonchi, wheezing - Cardiovascular Rhythm: regular Heart Sounds: Present: S1 & S2 - Extremities Extremities: no ischemia, No edema - Abdominal General gastrointestinal: soft, non-tender, non-distended, normal bowel sounds - Integumentary Integumentary: Present: clear, warm - Psychiatric Psychiatric: other (Confused minimally communicative) - Neurologic Neurologic: moves all extremities (Acute CVA with residual weakness) HEART Score - HEART Score Troponin: Troponin T < 0.010 ng/mL (0.00-0.029) 11/16/20 15:17 Results - Labs CBC & Chem 7: 11/16/20 15:17 11/16/20 15:17 Labs: Laboratory Last Values WBC 5.2 K/mm3 (4.5-11.0) 11/16/20 15:17 RBC 4.49 M/mm3 (3.65-5.03) 11/16/20 15:17 Hgb 13.8 gm/dl (11.8-15.2) 11/16/20 15:17 Hct 41.0 % (35.5-45.6) 11/16/20 15:17 MCV 91 fl (84-94) 11/16/20 15:17 MCH 31 pg (28-32) 11/16/20 15:17 MCHC 34 % (32-34) 11/16/20 15:17 RDW 13.8 % (13.2-15.2) 11/16/20 15:17 Plt Count 148 K/mm3 (140-440) 11/16/20 15:17 Lymph % (Auto) 19.7 % (13.4-35.0) 11/16/20 15:17 [place] % (Auto) 7.2 % (0.0-7.3) 11/16/20 15:17 Eos % (Auto) 3.4 % (0.0-4.3) 11/16/20 15:17 Baso % (Auto) 0.9 % (0.0-1.8) 11/16/20 15:17 Lymph # (Auto) 1.0 K/mm3 (1.2-5.4) L 11/16/20 15:17 [place] # (Auto) 0.4 K/mm3 (0.0-0.8) 11/16/20 15:17 Eos # (Auto) 0.2 K/mm3 (0.0-0.4) 11/16/20 15:17 Baso # (Auto) 0.0 K/mm3 (0.0-0.1) 11/16/20 15:17 Seg Neutrophils % 68.8 % (40.0-70.0) 11/16/20 15:17 Seg Neutrophils # 3.6 K/mm3 (1.8-7.7) 11/16/20 15:17 ESR 10 mm/Hr (0-20) 11/19/20 15:56 PT 13.8 Sec. (12.2-14.9) 11/16/20 15:17 INR 1.00 (0.87-1.13) 11/16/20 15:17 APTT 29.1 Sec. (24.2-36.6) 11/16/20 15:17 Thrombin Time 79.1 Sec. (15.1-19.6) H 11/16/20 15:17 Sodium 135 mmol/L (137-145) L 11/16/20 15:17 Potassium 4.3 mmol/L (3.6-5.0) 11/16/20 15:17 Chloride 101.0 mmol/L (98-107) 11/16/20 15:17 Carbon Dioxide 25 mmol/L (22-30) 11/16/20 15:17 Anion Gap 13 mmol/L 11/16/20 15:17 BUN 18 mg/dL (9-20) 11/16/20 15:17 Creatinine 1.2 mg/dL (0.8-1.3) 11/16/20 15:17 Estimated GFR 59 ml/min 11/16/20 15:17 BUN/Creatinine Ratio 15 % 11/16/20 15:17 Glucose 139 mg/dL (75-100) H 11/16/20 15:17 POC Glucose 133 mg/dL (70-105) H 11/17/20 16:40 Hemoglobin A1c 7.1 % (4-6) H 11/19/20 15:56 Calcium 8.7 mg/dL (8.4-10.2) 11/16/20 15:17 Troponin T < 0.010 ng/mL (0.00-0.029) 11/16/20 15:17 Triglycerides 109 mg/dL (2-149) 11/17/20 05:04 Cholesterol 92 mg/dL (50-199) 11/17/20 05:04 LDL Cholesterol Direct 55 mg/dL (50-130) 11/17/20 05:04 HDL Cholesterol 29 mg/dL (40-59) L 11/17/20 05:04 Cholesterol/HDL Ratio 3.17 % 11/17/20 05:04 Vitamin B12 834.8 pg/mL (211-911) 11/19/20 15:56 TSH 1.780 mlU/mL (0.270-4.200) 11/19/20 15:56 Urine Color Yellow (Yellow) 11/16/20 Unknown Urine Turbidity Clear (Clear) 11/16/20 Unknown Urine pH 6.0 (5.0-7.0) 11/16/20 Unknown Ur Specific [place] 1.036 (1.003-1.030) H 11/16/20 Unknown Urine Protein <15 mg/dl mg/dL (Negative) 11/16/20 Unknown Urine Glucose (UA) Neg mg/dL (Negative) 11/16/20 Unknown Urine Ketones Neg mg/dL (Negative) 11/16/20 Unknown Urine Blood Neg (Negative) 11/16/20 Unknown Urine Nitrite Neg (Negative) 11/16/20 Unknown Urine Bilirubin Neg (Negative) 11/16/20 Unknown Urine Urobilinogen 4.0 mg/dL (<2.0) 11/16/20 Unknown Ur Leukocyte Esterase Neg (Negative) 11/16/20 Unknown Urine WBC (Auto) 1.0 /HPF (0.0-6.0) 11/16/20 Unknown Urine RBC (Auto) 0.0 /HPF (0.0-6.0) 11/16/20 Unknown U Epithel Cells (Auto) < 1.0 /HPF (0-13.0) 11/16/20 Unknown Urine Opiates Screen Presumptive negative 11/16/20 Unknown Urine Methadone Screen Presumptive negative 11/16/20 Unknown Ur Barbiturates Screen Presumptive negative 11/16/20 Unknown Ur Phencyclidine Scrn Presumptive negative 11/16/20 Unknown Ur Amphetamines Screen Presumptive negative 11/16/20 Unknown U Benzodiazepines Scrn Presumptive negative 11/16/20 Unknown Urine Cocaine Screen Presumptive negative 11/16/20 Unknown U Marijuana (THC) Screen Presumptive negative 11/16/20 Unknown Drugs of Abuse Note Disclamer 11/16/20 Unknown Syphilis IgG Antibody Nonreactive (NonReactive) 11/19/20 15:56 De Souza/IV: Voiding Method Condom Catheter Active Medications - Current Medications Current Medications: Generic Name Dose Route Start Last Admin Trade Name Freq PRN Reason Stop Dose Admin Acetaminophen 650 mg 11/16/20 16:26 Acetaminophen 325 Mg Tab PO Q4H PRN Pain, Mild (1-3) Albuterol 2.5 mg 11/16/20 16:26 Albuterol 2.5 Mg/3 Ml Nebu IH Q3HRT PRN Shortness Of Breath Aspirin 325 mg 11/22/20 10:00 Aspirin 325 Mg Tab PO QDAY DOMI Atorvastatin Calcium 40 mg 11/16/20 22:00 11/20/20 21:28 Atorvastatin 40 Mg Tab PO 40 mg QHS DOMI Administration Bisacodyl 10 mg 11/16/20 16:26 Bisacodyl 10 Mg Rect Supp MN QDAY PRN Constipation Hydromorphone HCl 0.5 mg 11/16/20 16:26 Hydromorphone 1 Mg/1 Ml Inj IV Q12H PRN Pain , Severe (7-10) Magnesium Hydroxide 30 ml 11/16/20 16:26 Magnesium Hydroxide (Mom) Oral Liqd Udc PO Q4H PRN Constipation Memantine 5 mg 11/20/20 10:00 11/21/20 09:18 Memantine 5 Mg Tab PO 5 mg Q12HR DOMI Administration Metoclopramide HCl 10 mg 11/16/20 16:26 Metoclopramide 10 Mg Tab PO Q6H PRN Nausea And Vomiting Ondansetron HCl 4 mg 11/16/20 16:26 Ondansetron 4 Mg/2 Ml Inj IV Q8H PRN Nausea And Vomiting Oxycodone/Acetaminophen 1 tab 11/16/20 16:26 Oxycodone /Acetaminophen 5-325mg Tab PO Q12H PRN Pain, Moderate (4-6) Promethazine HCl 25 mg 11/16/20 16:26 Promethazine 25 Mg Rect Supp MN Q6H PRN Nausea And Vomiting Sodium Chloride 10 ml 11/16/20 16:26 Sodium Chloride 0.9% 10 Ml Flush Syringe IV PRN PRN LINE FLUSH
[2020-11-22] MEDS: MEMANTINE 5 MG TAB PO SCH ×2 (09:12→21:17)
[2020-11-22] MEDS: ASPIRIN 325 MG TAB PO SCH (09:12)
[2020-11-23] MEDS: MEMANTINE 5 MG TAB PO SCH ×2 (09:53→21:10)
[2020-11-23] MEDS: ASPIRIN 325 MG TAB PO SCH (09:53)
[2020-11-23] MEDS ORDERED: hydrALAZINE 20 MG/1 ML INJ IV PRN (10:00)
[2020-11-23 11:57] LABS: ANA Screen, IFA Negative (Negative)
--- NOTE | 2020-11-23 15:28 | Progress Note ---
Assessment and Plan Assessment and plan: --Acute CVA (cerebrovascular accident) right parietal infarct Candidate for TPA , patient had extensive neuro work-up as mentioned above Physical therapy occupational therapy and speech therapy evaluated the patient Recommend subacute rehab placement DC planning per case management Pending placement --Left-sided hemiparesis; Right parietal infarct, PT OT Acute rehab vs subacute rehab placement when stable --Cerebral atherosclerosis Risk factor reduction, antiplatelet therapy, supportive care. Right parietal infarct, with left hemiparesis, PT OT rehab --Acute metabolic encephalopathy; Due to acute CVA. Vascular dementia Treat the underlying cause, supportive care --Vascular dementia with behavioral disturbance Continue supportive care, PT OT speech therapy. Awaiting subacute rehab placement --General debility Physical therapy consulted, Occupational Therapy consulted Acute rehab placement --Diabetes type II Accu-Chek sliding scale coverage ADA diet insulin as needed medications adjusted --Hypertension Continue antihypertensives and as needed medications -- DVT prophylaxis SCD to bilateral lower extremities while in bed, continue therapeutic anticoagulation with Pradaxa --Advance care planning Disease education conducted, care plan discussed, diagnosis discussed, prognosis discussed. Patient at bedside during exam and interview and voices concerns regarding patient prognosis. Patient request home hospice evaluation. Home hospice team notified. Home evaluation arranged. Patient knowledges understanding and agreement with care plan, +30 minutes. Brief history and daily hospital course; 75 YO Male with HTN, DM, HLD, CVA x3 complicated by Dysarthria, and Debility currently on therapeutic anticoagulation with Pradaxa, Vascular Dementia with Behavioral Disturbance, Cerebral Atherosclerosis presents to ED for evaluation. Patient has diminished cognition and is unable to provide history at the time my evaluation. Patient is at bedside during exam and interview and provides history. Patient reports that patient has experienced progressive muscular weakness over the past 3 months with persistently worsening symptoms over the same timeframe. Patient is currently bedbound and nonambulatory. Patient currently requires 5/6 assistance with activities of daily living. Patient has a palliative performance score of 30%. Patient exhibits tangential thinking as well as confusion and agitation during evening hours. Patient reports that patient was found to have new onset left arm weakness today. EMS was notified and upon arrival the patient was found to be in distress with a neurologic deficit. A code stroke was called and the patient was transported to [facility] for further care and evaluation of the aforementioned symptoms. The patient was seen and evaluated in the emergency department. All lab and imaging studies reviewed. Patient found to have some clinical symptoms consistent with CVA. Patient placed in observation status and admitted to telemetry and initiated on CVA protocol. No reports of fever, chills, chest pain, palpitation, productive cough, skin rash, recent ill contacts, trauma, or known exposure to COVID-19. No prior admission for review. All medication listed at time of admission has been reconciled. Advanced care planning conducted in ED. 11/17/20 L sided hemiplegia D/w 11/18/20 L side hemiplegia D/w daughter 11/19/2020 Left-sided hemiplegia MRI ordered as urgent because it was not done on the weekend Neurology consult requested today 11/20/2020; Follow PT OT evaluation and recommendations Possible acute rehab vs subacute unstable 11/21/2020; patient is medically stable for discharge to subacute rehab Pending insurance authorization Discussed with son; 11/21/2020 I discussed in detail with patient's son Mr. Corona Jesus, patient's condition Patient reports, consultants recommendations, treatment and discharge planning To subacute rehab when placement is processed. He had questions answered all of them Encouraged him to call back if he has new concerns. Patient's nurse was in the room when I discussed with the son over the phone 11/22/2020; patient feels slightly better Awaiting placement 11/23/2020; patient is stable to be discharged Awaiting placement History Interval history: I have seen and examined the patient at the bedside Patient's chart and medications reviewed No new events reported by the nursing staff Patient is alert responding to very simple questions Vital signs noted Hospitalist Physical - Constitutional Vitals: Temp Pulse Resp BP Pulse Ox 97.8 F 81 22 169/92 95 11/23/20 08:15 11/23/20 09:55 11/23/20 08:15 11/23/20 09:55 11/23/20 08:15 General appearance: Present: no acute distress, well-nourished - EENT Eyes: Present: PERRL, EOM intact - Neck Neck: Present: supple, normal ROM - Respiratory Respiratory effort: normal Respiratory: bilateral: diminished, negative: rales, rhonchi, wheezing - Cardiovascular Rhythm: regular Heart Sounds: Present: S1 & S2 - Extremities Extremities: no ischemia, No edema - Abdominal General gastrointestinal: soft, non-tender, non-distended, normal bowel sounds - Integumentary Integumentary: Present: clear, warm - Psychiatric Psychiatric: appropriate mood/affect, cooperative - Neurologic Neurologic: other (Left hemiparesis mild dysarthria) HEART Score - HEART Score Troponin: Troponin T < 0.010 ng/mL (0.00-0.029) 11/16/20 15:17 Results - Labs CBC & Chem 7: 11/16/20 15:17 11/16/20 15:17 Labs: Laboratory Last Values WBC 5.2 K/mm3 (4.5-11.0) 11/16/20 15:17 RBC 4.49 M/mm3 (3.65-5.03) 11/16/20 15:17 Hgb 13.8 gm/dl (11.8-15.2) 11/16/20 15:17 Hct 41.0 % (35.5-45.6) 11/16/20 15:17 MCV 91 fl (84-94) 11/16/20 15:17 MCH 31 pg (28-32) 11/16/20 15:17 MCHC 34 % (32-34) 11/16/20 15:17 RDW 13.8 % (13.2-15.2) 11/16/20 15:17 Plt Count 148 K/mm3 (140-440) 11/16/20 15:17 Lymph % (Auto) 19.7 % (13.4-35.0) 11/16/20 15:17 [place] % (Auto) 7.2 % (0.0-7.3) 11/16/20 15:17 Eos % (Auto) 3.4 % (0.0-4.3) 11/16/20 15:17 Baso % (Auto) 0.9 % (0.0-1.8) 11/16/20 15:17 Lymph # (Auto) 1.0 K/mm3 (1.2-5.4) L 11/16/20 15:17 [place] # (Auto) 0.4 K/mm3 (0.0-0.8) 11/16/20 15:17 Eos # (Auto) 0.2 K/mm3 (0.0-0.4) 11/16/20 15:17 Baso # (Auto) 0.0 K/mm3 (0.0-0.1) 11/16/20 15:17 Seg Neutrophils % 68.8 % (40.0-70.0) 11/16/20 15:17 Seg Neutrophils # 3.6 K/mm3 (1.8-7.7) 11/16/20 15:17 ESR 10 mm/Hr (0-20) 11/19/20 15:56 PT 13.8 Sec. (12.2-14.9) 11/16/20 15:17 INR 1.00 (0.87-1.13) 11/16/20 15:17 APTT 29.1 Sec. (24.2-36.6) 11/16/20 15:17 Thrombin Time 79.1 Sec. (15.1-19.6) H 11/16/20 15:17 Sodium 135 mmol/L (137-145) L 11/16/20 15:17 Potassium 4.3 mmol/L (3.6-5.0) 11/16/20 15:17 Chloride 101.0 mmol/L (98-107) 11/16/20 15:17 Carbon Dioxide 25 mmol/L (22-30) 11/16/20 15:17 Anion Gap 13 mmol/L 11/16/20 15:17 BUN 18 mg/dL (9-20) 11/16/20 15:17 Creatinine 1.2 mg/dL (0.8-1.3) 11/16/20 15:17 Estimated GFR 59 ml/min 11/16/20 15:17 BUN/Creatinine Ratio 15 % 11/16/20 15:17 Glucose 139 mg/dL (75-100) H 11/16/20 15:17 POC Glucose 133 mg/dL (70-105) H 11/17/20 16:40 Hemoglobin A1c 7.1 % (4-6) H 11/19/20 15:56 Calcium 8.7 mg/dL (8.4-10.2) 11/16/20 15:17 Troponin T < 0.010 ng/mL (0.00-0.029) 11/16/20 15:17 Triglycerides 109 mg/dL (2-149) 11/17/20 05:04 Cholesterol 92 mg/dL (50-199) 11/17/20 05:04 LDL Cholesterol Direct 55 mg/dL (50-130) 11/17/20 05:04 HDL Cholesterol 29 mg/dL (40-59) L 11/17/20 05:04 Cholesterol/HDL Ratio 3.17 % 11/17/20 05:04 Vitamin B12 834.8 pg/mL (211-911) 11/19/20 15:56 TSH 1.780 mlU/mL (0.270-4.200) 11/19/20 15:56 Urine Color Yellow (Yellow) 11/16/20 Unknown Urine Turbidity Clear (Clear) 11/16/20 Unknown Urine pH 6.0 (5.0-7.0) 11/16/20 Unknown Ur Specific [place] 1.036 (1.003-1.030) H 11/16/20 Unknown Urine Protein <15 mg/dl mg/dL (Negative) 11/16/20 Unknown Urine Glucose (UA) Neg mg/dL (Negative) 11/16/20 Unknown Urine Ketones Neg mg/dL (Negative) 11/16/20 Unknown Urine Blood Neg (Negative) 11/16/20 Unknown Urine Nitrite Neg (Negative) 11/16/20 Unknown Urine Bilirubin Neg (Negative) 11/16/20 Unknown Urine Urobilinogen 4.0 mg/dL (<2.0) 11/16/20 Unknown Ur Leukocyte Esterase Neg (Negative) 11/16/20 Unknown Urine WBC (Auto) 1.0 /HPF (0.0-6.0) 11/16/20 Unknown Urine RBC (Auto) 0.0 /HPF (0.0-6.0) 11/16/20 Unknown U Epithel Cells (Auto) < 1.0 /HPF (0-13.0) 11/16/20 Unknown Urine Opiates Screen Presumptive negative 11/16/20 Unknown Urine Methadone Screen Presumptive negative 11/16/20 Unknown Ur Barbiturates Screen Presumptive negative 11/16/20 Unknown Ur Phencyclidine Scrn Presumptive negative 11/16/20 Unknown Ur Amphetamines Screen Presumptive negative 11/16/20 Unknown U Benzodiazepines Scrn Presumptive negative 11/16/20 Unknown Urine Cocaine Screen Presumptive negative 11/16/20 Unknown U Marijuana (THC) Screen Presumptive negative 11/16/20 Unknown Drugs of Abuse Note Disclamer 11/16/20 Unknown MINISTERIO Screen Negative (Negative) 11/19/20 15:56 Syphilis IgG Antibody Nonreactive (NonReactive) 11/19/20 15:56 Coronavirus (PCR) Negative (Negative) 11/22/20 Unknown De Souza/IV: Voiding Method Condom Catheter Active Medications - Current Medications Current Medications: Generic Name Dose Route Start Last Admin Trade Name Freq PRN Reason Stop Dose Admin Acetaminophen 650 mg 11/16/20 16:26 Acetaminophen 325 Mg Tab PO Q4H PRN Pain, Mild (1-3) Albuterol 2.5 mg 11/16/20 16:26 Albuterol 2.5 Mg/3 Ml Nebu IH Q3HRT PRN Shortness Of Breath Aspirin 325 mg 11/22/20 10:00 11/23/20 09:53 Aspirin 325 Mg Tab PO 325 mg QDAY DOMI Administration Atorvastatin Calcium 40 mg 11/16/20 22:00 11/22/20 21:17 Atorvastatin 40 Mg Tab PO 40 mg QHS DOMI Administration Bisacodyl 10 mg 11/16/20 16:26 Bisacodyl 10 Mg Rect Supp MT QDAY PRN Constipation Hydralazine HCl 10 mg 11/23/20 10:00 11/23/20 09:55 Hydralazine 20 Mg/1 Ml Inj IV 10 mg Q4H PRN Administration Hypertension Hydromorphone HCl 0.5 mg 11/16/20 16:26 Hydromorphone 1 Mg/1 Ml Inj IV Q12H PRN Pain , Severe (7-10) Magnesium Hydroxide 30 ml 11/16/20 16:26 Magnesium Hydroxide (Mom) Oral Liqd Udc PO Q4H PRN Constipation Memantine 5 mg 11/20/20 10:00 11/23/20 09:53 Memantine 5 Mg Tab PO 5 mg Q12HR DOMI Administration Metoclopramide HCl 10 mg 11/16/20 16:26 Metoclopramide 10 Mg Tab PO Q6H PRN Nausea And Vomiting Ondansetron HCl 4 mg 11/16/20 16:26 Ondansetron 4 Mg/2 Ml Inj IV Q8H PRN Nausea And Vomiting Oxycodone/Acetaminophen 1 tab 11/16/20 16:26 Oxycodone /Acetaminophen 5-325mg Tab PO Q12H PRN Pain, Moderate (4-6) Promethazine HCl 25 mg 11/16/20 16:26 Promethazine 25 Mg Rect Supp MT Q6H PRN Nausea And Vomiting Sodium Chloride 10 ml 11/16/20 16:26 Sodium Chloride 0.9% 10 Ml Flush Syringe IV PRN PRN LINE FLUSH Nutrition/Malnutrition Assess - Dietary Evaluation Nutrition/Malnutrition Findings: Nutrition Notes Start: 11/22/20 11:34 Freq: Status: Active Protocol: Document 11/22/20 11:34 (Rec: 11/22/20 11:35 [email or web address]) Nutrition Notes Need for Assessment generated from: LOS Initial or Follow up Brief Note Subjective/Other Information Screen for LOS. Pt ate 80% of breakfast. Per chart, pt eating 75-100% of meals. Nutrition Intervention Revisit per MD consult or patient Sign Off request:
[2020-11-24 09:25] VITALS: BP 161/87
[2020-11-24] MEDS: ASPIRIN 325 MG TAB PO SCH (10:35)
[2020-11-24] MEDS: MEMANTINE 5 MG TAB PO SCH (10:35)
--- NOTE | 2020-11-24 10:43 | Discharge Summary ---
Providers - Providers Date of Admission: 11/16/20 19:30 Date of discharge: 11/24/20 Attending physician: GEORGE ANDERSON 11/16/20 16:30 Occupational Therapy Evaluate and Treat [CONS] Routine Comment: Reason For Exam: Neuro deficits Physical Therapy Evaluation and Treat [CONS] Routine Comment: Reason For Exam: Neuro deficits 11/16/20 16:32 Speech Therapy Evaluation and Treat [CONS] Routine Reason For Exam: swallow eval 11/19/20 13:28 Consult to Physician [CONS] Routine Comment: Consulting Provider: LAUREN SHUKLA Physician Instructions: Reason For Exam: cva Primary care physician: [employer] Hospitalization Reason for admission: Left-sided weakness/acute CVA Condition: Stable Pertinent studies: CT head without contrast CTA head CTA neck Carotid Doppler Echocardiogram MRI brain Hospital course: 75-year-old male patient with significant past medical history of multiple CVAs in the past with residual slurred speech and general debility was admitted through emergency room with sudden left-sided weakness/acute CVA patient was evaluated by telemetry neurologist, patient was not a candidate for TPA Admitted to the hospital subsequently evaluated by neurologist had extensive neuro work-up as mentioned above, patient also is on anticoagulation Pradaxa for history of DVT in the past according to his , which was held briefly due to acute CVA and will be resumed at discharge today patient received physical therapy occupational therapy who recommended Acute versus subacute rehab placement Case management set up subacute rehab placement and patient is being discharged today Today patient is comfortable no new complaints vital signs stable Physical examination prior to discharge no new findings patient is hemodynamically and clinically stable at discharge to [facility] I discussed in detail with patient's Ms. Nay Gutierrez and updated patient's condition Discharge planning, answered all her questions Patient is stable at discharge. Discharge diagnosis: .--Acute CVA (cerebrovascular accident) right parietal infarct Not candidate for TPA , patient had extensive neuro work-up as mentioned above PT OT recommended placement --Left-sided hemiparesis; PT OT and subacute rehab continue current management --Cerebral atherosclerosis Continue current management --Acute metabolic encephalopathy; Due to acute CVA. Vascular dementia Significantly improved --Vascular dementia with behavioral disturbance Supportive care --Chronic anticoagulation on Pradaxa reports that patient has history of DVT, and has been on Coumadin in the past and later his PMD changed to Pradaxa and advised to continue Patient will follow with his primary care physician per schedule --General debility PT OT supportive care --Diabetes type II Accu-Chek sliding scale coverage ADA diet . insulin as needed medications adjusted --Hypertension Well-controlled -- DVT prophylaxis Continue Pradaxa Patient is hemodynamically and clinically stable at discharge to [facility] Disposition: [id number] CERT Final Discharge Diagnosis (Prints w/discharge instructions): Acute right parietal infarct. Left hemiparesis. cerebral atherosclerosis. Metabolic encephalopathy. Vascular dementia. General debility. Type 2 diabetes mellitus. Chronic anticoagulation/on Pradaxa. Hypertension Time spent for discharge: 35 min Core Measure Documentation - Palliative Care Palliative Care/ Comfort Measures: Not Applicable - Core Measures Any of the following diagnoses?: stroke - Stroke Discharge Requirements Statin for LDL = or >70 mg/dl on DC: Yes Anticoag for atrial fib/atrial flutter: Not Applicable (No A. fib a flutter) Antithrombotic for ischemic stroke: Yes Exam - Constitutional Vitals: Temp Pulse Resp BP Pulse Ox 98.9 F 81 22 161/87 94 11/24/20 09:23 11/24/20 09:23 11/24/20 09:23 11/24/20 09:23 11/24/20 09:23 General appearance: Present: no acute distress, well-nourished - EENT Eyes: Present: PERRL, EOM intact - Neck Neck: Present: supple - Respiratory Respiratory effort: normal Respiratory: bilateral: diminished, negative: rales, rhonchi, wheezing - Cardiovascular Rhythm: regular Heart Sounds: Present: S1 & S2 - Extremities Extremities: no ischemia, abnormal (Left-sided weakness) - Abdominal General gastrointestinal: Present: soft, non-tender, non-distended, normal bowel sounds - Integumentary Integumentary: Present: clear, warm - Musculoskeletal Musculoskeletal: left sided weakness - Psychiatric Psychiatric: cooperative, other (Minimally communicative) - Neurologic Neurologic: moves all extremities, other (Acute CVA with left-sided hemiparesis) Plan Activity: advance as tolerated, fall precautions Diet: other (Cardiac diet/mechanical soft advance as tolerated) Special Instructions: physical therapy, occupational therapy Additional Instructions: Fall precautions. Aspiration precautions. Need to follow neurology in 1 to 2 weeks. If he has any worsening symptoms contact MD or send him nearest emergency room as needed Follow up with: PRIMARY MD NAE [Primary Care Provider] - 7 Days DANIEL PAZ MD [Staff Physician] - 7 Days Prescriptions: Adult Multivitamin Extra D3 1,000 mg PO DAILY #30 bisacodyL [Dulcolax suppos] 10 mg AL QDAY PRN #20 supp.rect PRN Reason: Constipation Aspirin EC [Halfprin EC] 81 mg PO QDAY #30 tablet. hydrALAZINE 25 mg PO BID #60 AtorvaSTATin [Lipitor] 40 mg PO QHS #30 tablet Memantine 5 mg PO Q12HR #30 tablet Dabigatran [Pradaxa] 150 mg PO BID #60 cap atenoloL [Tenormin] 25 mg PO DAILY #30
== END 2020-11-24 16:58 | DRG 64 ==
LOC: ED 14:48 → 4A 16:30 → OBSVTOIN 19:30 → 4A 21:01
PROVIDERS: ADMIT Internal Medicine; ATTEND Internal Medicine
DX: I63.89 Other cerebral infarction (principal); G93.41 Metabolic encephalopathy; F03.91 Unspecified dementia, unspecified severity, with behavioral disturbance; G81.94 Hemiplegia, unspecified affecting left nondominant side; Z20.822 Contact with and (suspected) exposure to COVID-19; I67.2 Cerebral atherosclerosis; R53.81 Other malaise; I10 Essential (primary) hypertension; E78.5 Hyperlipidemia, unspecified; E11.9 Type 2 diabetes mellitus without complications; R29.704 NIHSS score 4; Z79.899 Other long term (current) drug therapy; Z79.891 Long term (current) use of opiate analgesic; Z83.3 Family history of diabetes mellitus; Z82.49 Family history of ischemic heart disease and other diseases of the circulatory system; Z88.2 Allergy status to sulfonamides; Z88.8 Allergy status to other drugs, medicaments and biological substances; Z79.4 Long term (current) use of insulin
CPT/HCPCS: 36415; 70450; 70496; 70498; 70551; 71045; 80048; 80061; 80307; 81001; 82607; 82962; 83036; 84443; 84484; 85025; 85610; 85652; 85670; 85730; 86038; 86592; 93005; 93306; 93880; 94640; 94660; G0378; A9270-GY; J0360; Q9967; U0003